=== PATIENT | female | born 1970 | race Two or more races ===

== ENCOUNTER → 2025-01-08 | Outpatient (CLI) | payer BC, SELFPAY ==
--- NOTE | 2025-01-08 14:43 | XR_ITS ---
Examination: PA lateral chest 2 views TECHNIQUE: Upright PA lateral chest 2 views Exam date and time: January 08, 2025 1511 hours Comparison December 14, 2023 INDICATIONS: Coughing beginning 2 weeks ago. FINDINGS: Normal heart size No pneumonia or pulmonary edema Moderate osteopenia IMPRESSION: No pneumonia or pulmonary edema
[2025-01-09 13:12] LABS: Cocci Serology, IgM Negative (Negative)
[2025-01-10 14:10] LABS: Cocci Serology, IgG Negative (Negative)
== END | disposition home or self-care (01) ==
LOC: COPL 14:25
PROVIDERS: PCP Specialist; Referring Provider Specialist; Visit Provider Radiology Diagnostic Radiology
DX: J20.9 Acute bronchitis, unspecified (principal); R05.9 Cough, unspecified
CPT/HCPCS: 36415; 71046; 86331; 86635

== ENCOUNTER → 2025-01-09 | Outpatient (CLI) | payer BC, SELFPAY ==
[2025-01-09 11:37] LABS: Influenza A Ag Negative; Influenza B Ag Negative
== END | disposition home or self-care (01) ==
LOC: SLDO 10:45
PROVIDERS: PCP Specialist; Referring Provider Specialist; Visit Provider Specialist
DX: R05.9 Cough, unspecified (principal)
CPT/HCPCS: 87502

== ENCOUNTER → 2025-04-23 | Outpatient (CLI) | payer BC, SELFPAY ==
[2025-04-23 16:28] LABS: Basophils # (Auto) 0.1 Thou/mm3 (0.0-0.2); Basophils % (Auto) 1 % (0-2.5); Eosinophils # (Auto) 0.1 Thou/mm3 (0.0-0.5); Eosinophils % (Auto) 2 % (0-10); Hematocrit 40.8 % (36.0-46.0); Hemoglobin 13.7 g/dL (12.0-16.0); Immature Granulocytes % (Auto) 0 % (0-0); Immature Granulocytes Auto 0.02 Thou/mm3 (0.00-0.00); Lymphocytes # (Auto) 2.2 Thou/mm3 (1.0-4.8); Lymphocytes % (Auto) 30 % (10-50); Mean Corpuscular HGB Conc 33.6 g/dl (31.0-37.0); Mean Corpuscular Hemoglobin 27.7 pg (25.0-35.0); Mean Corpuscular Volume 82 fL (80-100); Monocytes # (Auto) 0.7 Thou/mm3 (0.0-0.8); Monocytes % (Auto) 10 % (0-12); Neutrophils % (Auto) 56 % (37-80); Nucleated Red Blood Cell % 0 /100 WBC (0); Platelet Count 280 Thou/mm3 (140-440); RDW Standard Deviation 38.8 fL (36.4-46.3); Red Blood Count 4.95 Miln/mm3 (4.00-5.20); White Blood Count 7.1 Thou/mm3 (3.6-11.0)
[2025-04-23 16:50] LABS: B-Type Natriuretic Peptide < 20 pg/mL (0-100)
[2025-04-23 16:51] LABS: Troponin I < 0.002 ng/mL (0.0-0.045)
[2025-04-23 16:52] LABS: Parathyroid Hormone Intact 153.7 pg/ml (18.5-88.0)
[2025-04-23 16:59] LABS: Alanine Aminotransferase 32 U/L (10-49); Albumin, Serum 4.3 gm/dL (3.5-5.0); Albumin/Globulin Ratio 1.9 (1.2-2.2); Alkaline Phosphatase 119 U/L (46-116); Anion Gap 10 (7-16); Aspartate Amino Transferase 26 U/L (0-34); BUN/Creatinine Ratio 20 Ratio (12-20); Bilirubin,Total 0.3 mg/dL (0.3-1.2); Blood Urea Nitrogen 16 mg/dL (9-23); Calcium 9.5 mg/dL (8.3-10.6); Calcium (Corrected) 9.5 mg/dL (8.5-10.1); Carbon Dioxide 26.7 mMol/L (20.0-31.0); Cardiac Risk Estimate 2.7 RATIO (3.7-5.6); Chloride 105 mMol/L (98-107); Cholesterol 194 mg/dL (132-200); Creatinine (Component) 0.8 mg/dL (0.6-1.3); Free T4 (Free Thyroxine) 1.53 ng/dL (0.89-1.76); Globulin 2.3 gm/dL (2.3-3.5); Glucose 90 mg/dL (74-106); HDL Cholesterol 72 mg/dL (40-60); LDL Cholesterol,Calculated 105 mg/dL (0-130); Osmolality,Calculated 284 (275-295); Potassium 4.3 mMol/L (3.4-5.1); Sodium 142 mMol/L (136-145); Thyroid Stimulating Hormone 1.21 uIU/mL (0.55-4.78); Total Protein 6.6 gm/dL (5.7-8.2); Triglycerides 87 mg/dL (30-150); eGFR > 60 See Note
[2025-04-30 13:47] LABS: Thyroglobulin Antibodies <1 IU/mL (< OR = 1)
[2025-05-01 06:57] LABS: Thyroglobulin 6.2 ng/mL
== END | disposition home or self-care (01) ==
LOC: COPL 15:35
PROVIDERS: PCP Specialist; Referring Provider Specialist; Visit Provider Specialist
DX: R22.43 Localized swelling, mass and lump, lower limb, bilateral (principal); R53.83 Other fatigue; E78.2 Mixed hyperlipidemia; E03.8 Other specified hypothyroidism; E21.3 Hyperparathyroidism, unspecified; I10 Essential (primary) hypertension
CPT/HCPCS: 36415; 80053; 80061; 82306; 82330; 83880; 83970; 84432; 84439; 84443; 84484; 85025; 86800

== ENCOUNTER → 2025-05-13 | Outpatient (CLI) | payer BC, SELFPAY ==
--- NOTE | 2025-05-13 | XR_ITS ---
Examination: Ultrasound soft tissue neck TECHNIQUE: Grayscale sonographic images soft tissue neck Date and time: May 13, 2025 0913 hours INDICATIONS: Elevated parathyroid hormone FINDINGS: No cystic or solid masses noted IMPRESSION: No cystic or solid soft tissue neck mass is noted
--- NOTE | 2025-05-13 08:45 | XR_ITS ---
Examination: Thyroid sonography TECHNIQUE: Grayscale sonographic images thyroid lobes Date and time: May 13, 2025 0904 hours INDICATIONS: Diagnosis Max's thyroiditis secondary hyperparathyroidism FINDINGS: Right thyroid 4.2 cm Upper pole nodule 3 x 3 mm Lower pole nodule 4 x 4 millimeter Left thyroid 4.7 cm Lower pole nodule 16 x 10 x 14 mm IMPRESSION: Thyroid nodules as above Consider ultrasound-guided fine-needle aspiration of the vascular lower pole left thyroid nodule 16 x 10 x 14 mm
[2025-05-13 10:21] LABS: Calcium, Ionized 5.1 mg/dL (4.6-5.6)
[2025-05-13 10:22] LABS: Basophils # (Auto) 0.1 Thou/mm3 (0.0-0.2); Basophils % (Auto) 2 % (0-2.5); Eosinophils # (Auto) 0.1 Thou/mm3 (0.0-0.5); Eosinophils % (Auto) 1 % (0-10); Hematocrit 42.2 % (36.0-46.0); Hemoglobin 14.1 g/dL (12.0-16.0); Immature Granulocytes % (Auto) 0 % (0-0); Immature Granulocytes Auto 0.01 Thou/mm3 (0.00-0.00); Lymphocytes # (Auto) 1.8 Thou/mm3 (1.0-4.8); Lymphocytes % (Auto) 30 % (10-50); Mean Corpuscular HGB Conc 33.4 g/dl (31.0-37.0); Mean Corpuscular Hemoglobin 27.3 pg (25.0-35.0); Mean Corpuscular Volume 82 fL (80-100); Monocytes # (Auto) 0.5 Thou/mm3 (0.0-0.8); Monocytes % (Auto) 8 % (0-12); Neutrophils # (Auto) 3.4 Thou/mm3 (1.8-7.7); Neutrophils % (Auto) 59 % (37-80); Nucleated Red Blood Cell % 0 /100 WBC (0); Platelet Count 270 Thou/mm3 (140-440); RDW Standard Deviation 39.1 fL (36.4-46.3); Red Blood Count 5.17 Miln/mm3 (4.00-5.20); White Blood Count 5.9 Thou/mm3 (3.6-11.0)
[2025-05-13 10:38] LABS: Parathyroid Hormone Intact 94.8 pg/ml (18.5-88.0)
[2025-05-13 10:40] LABS: T4 (Thyroxine) 8.9 mcg/dL (4.5-10.9)
[2025-05-13 10:41] LABS: Sed Rate (ESR) 3 mm/hr (0-30)
[2025-05-13 10:44] LABS: Alanine Aminotransferase 30 U/L (10-49); Albumin, Serum 4.3 gm/dL (3.5-5.0); Albumin/Globulin Ratio 1.8 (1.2-2.2); Alkaline Phosphatase 119 U/L (46-116); Anion Gap 7 (7-16); Aspartate Amino Transferase 23 U/L (0-34); BUN/Creatinine Ratio 16 Ratio (12-20); Bilirubin,Total 0.5 mg/dL (0.3-1.2); Blood Urea Nitrogen 13 mg/dL (9-23); C-Reactive Protein < 0.5 mg/dL (0.0-0.9); Calcium 9.7 mg/dL (8.3-10.6); Calcium (Corrected) 9.7 mg/dL (8.5-10.1); Carbon Dioxide 29.9 mMol/L (20.0-31.0); Chloride 105 mMol/L (98-107); Creatinine (Component) 0.8 mg/dL (0.6-1.3); Free T3 3.2 pg/mL (2.3-4.2); Free T4 (Free Thyroxine) 1.46 ng/dL (0.89-1.76); Globulin 2.4 gm/dL (2.3-3.5); Glucose 105 mg/dL (74-106); Osmolality,Calculated 283 (275-295); Potassium 3.8 mMol/L (3.4-5.1); Sodium 142 mMol/L (136-145); Thyroid Stimulating Hormone 1.37 uIU/mL (0.55-4.78); Total Protein 6.7 gm/dL (5.7-8.2); eGFR > 60 See Note
[2025-05-20 06:47] LABS: T3,Total* 100 ng/dL (76-181); Thyroglobulin Antibodies* <1 IU/mL (< OR = 1); Thyroid Peroxidase Antibodies* <1 IU/mL (<9); Vitamin D,1,25 (OH)2,Total 44 pg/mL (18-72); Vitamin D2, 1,25 (OH)2 29 pg/mL; Vitamin D3, 1,25 (OH)2 15 pg/mL
== END | disposition home or self-care (01) ==
LOC: CDIM 09:24 → COPL 09:32
PROVIDERS: PCP Specialist; Referring Provider Nurse Practitioner Family; Visit Provider Radiology Diagnostic Radiology
DX: E04.1 Nontoxic single thyroid nodule (principal); E21.3 Hyperparathyroidism, unspecified; E06.3 Autoimmune thyroiditis; E55.9 Vitamin D deficiency, unspecified
CPT/HCPCS: 36415; 76536; 80053; 82330; 82652; 83970; 84436; 84439; 84443; 84480; 84481; 85025; 85652; 86140; 86376; 86800

== ENCOUNTER 2025-07-06 19:08 | Inpatient (IN) | payer BC, SELFPAY ==
[2025-07-06 19:10] VITALS: BP 162/103; PULSE 76; RESP 18; TEMP 36.9; O2SAT 97; BMI 34.9
--- NOTE | 2025-07-06 19:29 | PD.EDNEURO ---
Neuro Symptoms Deficit-RME/HPI General Chief Complaint: General Adult/Misc Complain Stated Complaint: HTN, SOB, DIZZINESS Time Seen by Provider: 07/06/25 19:17 Arrival date/time: 07/06/25 19:08 RME / HPI RME / HPI Narrative: See [facility] for HPI documentation. Related Data Home Medications ?Medication ?Instructions ?Recorded ?Confirmed azelastine 137 mcg (0.1 %) nasal 1 spray intranasal DAILY 12/27/20 04/13/21 spray cetirizine 10 mg capsule (Zyrtec) 20 mg QDAY 12/27/20 04/13/21 fluticasone furoate 200 1 inh inhalation QDAY 12/27/20 04/13/21 mcg-vilanterol 25 mcg/dose inhalation powder (Breo Ellipta) fluticasone propionate 50 1 spray intranasal QDAY 12/27/20 04/13/21 mcg/actuation nasal spray,suspension levothyroxine 75 mcg tablet 75 mcg PO QDAY 12/27/20 04/13/21 lisinopril 10 mg tablet 10 mg PO QDAY 12/27/20 04/13/21 montelukast 10 mg tablet 10 mg PO QDAY 12/27/20 04/13/21 (Singulair) Previous Rx's ?Medication ?Instructions ?Recorded albuterol sulfate 90 mcg/actuation 2 puff inhalation QID #18 grams 04/14/21 aerosol inhaler diphenhydramine HCl 25 mg capsule 25 mg PO QID PRN allergy symptoms 04/14/21 (Benadryl) #30 caps epinephrine 0.3 mg/0.3 mL 0.3 ml subcut .once PRN 04/14/21 injection, auto-injector hypersensitivity reaction #2 ea Allergies Allergy/AdvReac Type Severity Reaction Status Date / Time hydrocodone Allergy Severe HALLUCINATI Verified 07/06/25 19:19 ONS Review of Systems Review of Systems Systems Reviewed: All systems reviewed, normal except as documented ED Exam Narrative Physical exam: See [facility] for physical exam documentation. Course Course Course Narrative: 193: Stroke alert initiated. Quality Measures none Orders Category Date Time Status Bedside Blood Glucose NOW Care 07/06/25 19:31 Active Leather Coverer NOW Care 07/06/25 19:31 Active Continuous Pulse Oximetry NOW Care 07/06/25 19:31 Completed EKG (ED ONLY) *Do not use* NOW Care 07/06/25 19:31 Completed In and Out Catheter NEEDED Care 07/06/25 19:31 Active Insert IV NOW Care 07/06/25 19:31 Active NIH Stroke Scale now Care 07/06/25 19:31 Active NPO NOW Care 07/06/25 19:31 Completed Nurse Swallow Screen x1 Care 07/06/25 19:31 Active Consult to Neurology / Tele-Neurology Routine Cons 07/06/25 19:[address] stroke protocol Stat Exams 07/06/25 19:31 Completed EKG (ED Only) Stat Exams 07/06/25 19:31 Draft XR chest 1V portable Stat Exams 07/06/25 19:31 Completed Alcohol, Blood Medical Stat Lab 07/06/25 20:00 Completed Alcohol, Blood Medical Stat Lab 07/06/25 21:18 Completed B-Type Natriuretic Peptide Stat Lab 07/06/25 20:00 Completed CBC Stat Lab 07/06/25 20:00 Completed Comprehensive Metabolic Panel Stat Lab 07/06/25 20:00 Completed Drug Screen,Urine Stat Lab 07/06/25 20:07 Completed Free T3 Stat Lab 07/06/25 20:00 Completed Free T4 (Free Thyroxine) Stat Lab 07/06/25 20:00 Completed Magnesium Stat Lab 07/06/25 20:00 Completed Partial Thromboplastin Time Stat Lab 07/06/25 20:00 Completed Prothrombin Time with INR Stat Lab 07/06/25 20:00 Completed TSH [Thyroid Stimulating Hormone] Stat Lab 07/06/25 20:00 Completed Troponin I Stat Lab 07/06/25 20:00 Completed Urinalysis Stat Lab 07/06/25 20:07 Completed Labetalol IV [Trandate IV] Med 07/06/25 19:31 Active 10 mg IVP Q15M PRN Ondansetron Inj [Zofran Inj] Med 07/06/25 19:31 Discontinued 4 mg IVP Q4HR PRN Sodium Chloride 0.9% 1000 ml [Ns] 1,000 ml Med 07/06/25 19:45 Active IV 100 mls/hr Oxygen Delivery NOW RT 07/06/25 19:31 Active Vital Signs Vital signs: Vital Signs Temperature 98.4 F 07/06/25 19:10 Pulse Rate 76 07/06/25 19:10 Respiratory Rate 18 07/06/25 19:10 Blood Pressure 162/103 H 07/06/25 19:10 Pulse Oximetry (%) 97 07/06/25 19:10 Oxygen Delivery Method Room Air 07/06/25 19:10 Neuro Symptoms / Deficit MDM Narrative MDM Narrative:: This section includes all my notes and documentations, including HPI, PE, and ED course. Edward Hall MD HPI: 55yo female with a history of Max's, HTN here with complaints of difficulty articulating her words, difficulty with her balance, and difficulty swallowing. Patient's symptoms started when she was at work this morning around 11am, about 8 hours ago. She initially started having difficulty speaking her words (resolved after about 5 minutes). She then had unsteady gait around 1pm (resolved after couple minutes). At around 4pm, she started having difficulty swallowing, shortness of breath, diarrhea, and tingling to her left arm. She was able to swallow saliva and water. No other complaints reported. ROS: All negative except as documented in HPI. Physical Exam: General: Alert and oriented. No acute distress. Eyes: Conjunctivae and lids clear. EOMI. PERRL. ENT: No nasal congestion. Neck: Supple. No carotid bruit. No JVD. Heart: RRR. Lungs: No respiratory distress. Good air movement. No rhonchi, wheezing, rales. Abdomen: Soft and nontender. Legs: No clubbing, cyanosis, edema. Skin: Warm and dry. Neuro: Alert and oriented X 3. Cranial Nerves II-XII grossly intact. No peripheral motor deficits. I reviewed all diagnostic test results. My interpretation of the EKG is sinus rhythm with no ST-T changes. My interpretation of the chest x-ray is NAD. My review of the CT head report is NAD. Blood tests and urine tests are unremarkable. At this point, diagnoses include strokelike symptoms. I discussed the case with our teleneurologist and our hospitalist. About the presentation and exam and diagnostics and treatments here. And need of further care in the hospital. Will accept the patient. Edward Hall MD Patient data External records reviewed:: [facility] previous records (Per chart review, patient was seen here on 10/27/23 for paresthesia. ) Clinical information provided by:: patient Social determinants that could affect healthcare access:: none Patient has the following chronic illnesses:: HTN, Max's How is presenting disease/condition affected by chronic disease/condition?: uneffected by Evaluation data The following diagnostics were reviewed and interpreted by me:: lab results, radiology exam(s) and EKG tracing(s) (My interpretation of the EKG: NSR (74 bpm) with no ST-T changes. Edward Hall MD) Lab and/or radiology exams considered but not ordered:: none Interpretation Summary: I reviewed all diagnostic test results. My interpretation of the EKG is sinus rhythm with no ST-T changes. My interpretation of the chest x-ray is NAD. My review of the CT head report is NAD. Blood tests and urine tests are unremarkable. Medications / Prescriptions Medications or Prescriptions considered but not ordered:: none Medication administrations:: Medication Administration History Acetaminophen (Acetaminophen 325 Mg Tablet) 650 mg PO Q6H PRN PRN Reason: Fever >100.4 Stop: 08/05/25 23:16 Acetaminophen (Acetaminophen 325 Mg Tablet) 650 mg PO Q6H PRN PRN Reason: PAIN SCALE 1-3 (mild Stop: 08/05/25 23:16 Enoxaparin Sodium (Enoxaparin Sod Inj 40 Mg/0.4 Ml Syringe) 40 mg SC QDAY THANH Stop: 07/21/25 08:59 Sodium Chloride (Ns) 1,000 mls @ 100 mls/hr IV .Q10H THANH Stop: 08/05/25 19:44 Last Admin: 07/06/25 20:51 Dose: 100 mls/hr Documented By: GB Magnesium Sulfate (Magnesium Sulfate Ivpb) 2 gm in 50 mls @ 25 mls/hr IV X1 ONE Stop: 07/07/25 02:05 Last Admin: 07/07/25 00:28 Dose: 25 mls/hr Documented By: GB Labetalol HCl (Labetalol Inj 5 Mg/Ml Vial 20 Ml) 10 mg IVP Q15M PRN PRN Reason: HYPER Stop: 07/09/25 19:30 Morphine Sulfate (Morphine Sulf Inj 10 Mg/Ml Vial) 1 mg IVP Q4HR PRN PRN Reason: PAIN SCALE 7-10 (Severe Stop: 07/11/25 23:16 Ondansetron HCl (Ondansetron Inj 2 Mg/Ml Inj 2 Ml) 4 mg IVP Q6H PRN; Protocol PRN Reason: NAUSEA OR VOMITING Stop: 08/05/25 23:16 Oxycodone/Acetaminophen (Oxycodone/Apap 5/325 Tablet) 1 tab PO Q6H PRN PRN Reason: PAIN SCALE 4-6 (Moderate Stop: 07/11/25 23:16 Pantoprazole Sodium (Pantoprazole 40 Mg Tablet) 40 mg PO QDAY THANH Stop: 08/06/25 08:59 Sennosides (Senna Tablet) 1 tab PO QDAY PRN; Protocol PRN Reason: constipation Stop: 08/05/25 23:16 Discontinued Medications Ondansetron HCl (Ondansetron Inj 2 Mg/Ml Inj 2 Ml) 4 mg IVP Q4HR PRN PRN Reason: NAUSEA OR VOMITING Stop: 08/05/25 19:30 No medication given from me. Consultations Consultation(s) initiated? (list below): Yes Consultation #1 (Physician, Specialty, Details): I discussed the case with our teleneurologist and our hospitalist. About the presentation and exam and diagnostics and treatments here. And need of further care in the hospital. Will accept the patient. Diagnosis Neuro Differential Diagnosis: convulsions, delirium, subarachnoid hemorrhage, peripheral neuropathy, cerebrovascular accident, multiple sclerosis and transient cerebral ischemia Most likely diagnosis given after review of the tests above:: Strokelike symptoms Admission Indicated Admission indicated?: indicated Explain why admission is indicated or not indicated:: Possible CVA Admission Request Was there a request for admission?: Yes Admission Attestation Admission request attestation: Discussed case with Hospitalist service regarding admission. Discussed patients ED course, exam findings, labs, and radiology results. The Hospitalist [agrees] to accept the patient for admission. Disposition Plan Disposition Plan: Admit Critical Care Time Critical Care Time Critical Care Time: Yes Total Critical Care Time (min.): 35 Attestation: Due to a high probability of clinically significant, life threatening deterioration, the patient required my highest level of preparedness to intervene emergently and I personally spent this critical care time directly and personally managing the patient. This critical care time included obtaining a history; examining the patient; ordering and review of studies; arranging urgent treatment with development of a management plan; evaluation of patient's response to treatment; frequent reassessment; and discussions with family and other providers. It was exclusive of separately billable procedures and treating other patients and teaching time. Edward Hall MD Discharge Plan Plan Patient Disposition: Admit Acute Care w/in Hospital Problem List Clinical Impression: TIA (transient ischemic attack)
--- NOTE | 2025-07-06 19:31 | XR_ITS ---
Examination: CT brain head without contrast. 2-D sagittal coronal reconstructions Date and time of exam:July 06, 2025 1942 hours INDICATIONS: Stroke alert, onset focal neurologic deficit today CTDI: vol (mGy):50.4 DLP: (mGycm):1020 Technique: Multiple CT axial sections of the brain have been obtained, 5 mm slice thickness. Contrast has not been administered. 2-D sagittal, coronal reconstructions have been obtained Low dose protocols were performed. One or more of the following dose reduction techniques were used; automated exposure control, adjustment of the mA and/or KV according to patient size, use of iterative reconstruction technique. Findings: No significant ventricular enlargement. Intra-axial or extra-axial hemorrhage density is not seen. No mass effect or midline shift Basal cisterns are not remarkable. Fourth ventricle is midline. Cranial vault intact. Impression: Negative for acute hemorrhage, mass effect or midline shift
--- NOTE | 2025-07-06 19:31 | XR_ITS ---
Examination: AP chest single view TECHNIQUE: AP portable upright chest single view Date and time: July 06, 2025, 2023 hours, comparison January 08, 2025 INDICATIONS: Chest pain dizziness high blood pressure beginning 2 weeks ago. FINDINGS: Normal heart size. Lungs are clear. The osseous structures are intact IMPRESSION: No active disease
--- NOTE | 2025-07-06 19:31 | EKG_ITS ---
[facility] Test Date: 2025-07-06 Pat Name: JOHANA MAN Department: Room: - Gender: Female Oral Health Therapist: : 1970 Requested By: Edward Phillips Order Number: [id number] Reading MD: Edward Phillips Measurements Intervals [place] Rate: 74 P: 63 MD: 151 QRS: 5 QRSD: 96 T: 31 QT: 360 QTc: 401 Interpretive Statements SINUS RHYTHM Compared to ECG 10/27/2023 16:40:05 Sinus arrhythmia no longer present /store/S0/[id number].pdf
--- NOTE | 2025-07-06 19:33 | PC.NURSE ---
Case [id number]/06/2025 19:33:06 [facility] Case # [id number] has been created.
--- NOTE | 2025-07-06 20:05 | ESCONSULT_ITS ---
Tele Neuro Consultation Consultation Date 07/06/25 Most Recent Vital Signs Last Vital Signs Temp 98.4 F 07/06/25 19:10 Pulse 76 07/06/25 19:10 Resp 18 07/06/25 19:10 BP 162/103 H 07/06/25 19:10 Pulse Ox 97 07/06/25 19:10 O2 Del Method Room Air 07/06/25 19:10 Consultation Narrative [facility] Consult [facility] Patient Name:???Zina Andino Date of :???1970 Identification Number:??? Date of Service:???07/06/2025 19:33:06 Diagnosis:?R13.10 - Dysphagia Impression: ?This is a 55-year-old female with history of hypertension, irregular heartbeats, edema, Max thyroiditis, asthma, GERD not on any antiplatelet or anticoagulation. ?Around 11 AM today she had a brief period of difficulty speaking where she was mixing words and she felt dizzy for about 30 seconds. Later around 4:15 PM she felt that she was having difficulty swallowing and shortness of breath yet she was able to swallow water. ?By the time I saw her her NIH stroke scale was 0. She has subjective feeling of dysphagia. ?Basically intermittent symptoms of stroke like symptoms no disabling symptoms like to justify thrombolytic or advanced imaging. ?If she is able to swallow we can give her a dose of aspirin 325 mg x 1 and tomorrow baby aspirin daily. If not able to swallow we can do rectal aspirin 300 mg daily starting now. ?Workup for shortness of breath as per team. ?MRI of the brain without contrast. ?MRA head without contrast/MRA neck with contrast OR nonurgent CT angiogram head and neck with contrast. ?Echocardiogram with bubble study, fasting lipid profile hemoglobin A1c. ?Permissive hypertension as below. ?Telemetry monitoring. ?PT, OT, speech. ?DVT prophylaxis per primary team choice. ?Neurology to follow. ?Thank you for the consult Our recommendations are outlined below. Recommendations: ? Stroke/Telemetry Floor ? Neuro Checks ? Bedside Swallow Eval ? DVT Prophylaxis ? IV Fluids, Normal Saline ? Head of Bed 30 Degrees ? Euglycemia and Avoid Hyperthermia (PRN Acetaminophen) ? Antihypertensives PRN if Blood pressure is greater than 220/120 or there is a concern for End organ damage/contraindications for permissive HTN. If blood pressure is greater than 220/120 give labetalol PO or IV or Vasotec IV with a goal of 15% reduction in BP during the first 24 hours. Sign Out: ? Discussed with Emergency Department Provider ? Discussed with Rapid Response Team Advanced Imaging: Advanced Imaging Deferred because: Non-disabling symptoms as verified by the patient; no cortical signs so not consistent with LVO Metrics: Last Known Well: 07/06/2025 16:15:00 Dispatch Time: 07/06/2025 19:33:06 Arrival Time: 07/06/2025 19:30:00 Initial Response Time: 07/06/2025 19:36:06Symptoms: Dysphagia. . Initial patient interaction: 07/06/2025 19:37:00 NIHSS Assessment Completed: 07/06/2025 19:40:00Patient is not a candidate for Thrombolytic. Thrombolytic Medical Decision: 07/06/2025 19:40:00Patient was not deemed candidate for Thrombolytic because of following reasons: Stroke severity too mild (non-disabling) . CT Head: CT head unremarkable for acute infarction or hemorrhage per Radiology: no acute findings. I personally reviewed all the CT images that were available to me and it showed: no acute findings. Primary Provider Notified of Diagnostic Impression and Management Plan on: 07/06/2025 19:56:40 History of Present Illness:Patient is a 55 year old Female. Patient was brought by private transportation with symptoms of Dysphagia. . This is a 55-year-old female with history of hypertension, irregular heartbeats, edema, Max thyroiditis, asthma, GERD not on any antiplatelet or anticoagulation. Around 11 AM today she had a brief period of difficulty speaking where she was mixing words and she felt dizzy for about 30 seconds. Later around 4:15 PM she felt that she was having difficulty swallowing and shortness of breath yet she was able to swallow water. By the time I saw her her NIH stroke scale was 0. She has subjective feeling of dysphagia. Past Medical History: ?Hypertension ?There is no history of Diabetes Mellitus ?There is no history of Atrial Fibrillation ?There is no history of Stroke Medications: No Anticoagulant use? No Antiplatelet use Reviewed EMR for current medications Allergies:? Reviewed Social History: Smoking: No Family History: There is no family history of premature cerebrovascular disease pertinent to this consultation ROS : 14 Points Review of Systems was performed and was negative except mentioned in HPI. Past Surgical History: There Is No Surgical History Contributory To Today?s Visit Examination: BP(162/103),?Pulse(76), 1A: Level of Consciousness - Alert; keenly responsive?+ 0 1B: Ask Month and Age - Both Questions Right?+ 0 1C: Blink Eyes & Squeeze Hands - Performs Both Tasks?+ 0 2: Test Horizontal Extraocular Movements - Normal?+ 0 3: Test Visual Yang - No Visual Loss?+ 0 4: Test Facial Palsy (Use Grimace if Obtunded) - Normal symmetry?+ 0 5A: Test Left Arm Motor Drift - No Drift for 10 Seconds?+ 0 5B: Test Right Arm Motor Drift - No Drift for 10 Seconds?+ 0 6A: Test Left Leg Motor Drift - No Drift for 5 Seconds?+ 0 6B: Test Right Leg Motor Drift - No Drift for 5 Seconds?+ 0 7: Test Limb Ataxia (FNF/Heel-[place]) - No Ataxia?+ 0 8: Test Sensation - Normal; No sensory loss?+ 0 9: Test Language/Aphasia - Normal; No aphasia?+ 0 10: Test Dysarthria - Normal?+ 0 11: Test Extinction/Inattention - No abnormality?+ 0 NIHSS Score:?0 Pre-Morbid Modified [place] Scale:0 Points = No symptoms at all Spoke with :?ER provider This consult was conducted in real time using interactive audio and video technology. Patient was informed of the technology being used for this visit and agreed to proceed. Patient located in hospital and provider located at home/office setting. Patient is being evaluated for possible acute neurologic impairment and high probability of imminent or life-threatening deterioration. I spent total of 50 minutes providing care to this patient, including time for face to face visit via telemedicine, review of medical records, imaging studies and discussion of findings with providers, the patient and/or family. Dr Penny Watson [facility] For Inpatient follow-up with [facility] physician please call [facility] at . As we are not an outpatient service for any post hospital discharge needs please contact the hospital for assistance. If you have any questions for the [facility] physicians or need to reconsult for clinical or diagnostic changes please contact us via [facility] at . Signature :Hua Watson
[2025-07-06 20:12] LABS: Collection Type, Urine Clean Catch
[2025-07-06 20:12] LABS: Basophils # (Auto) 0.1 Thou/mm3 (0.0-0.2); Basophils % (Auto) 2 % (0-2.5); Eosinophils # (Auto) 0.1 Thou/mm3 (0.0-0.5); Eosinophils % (Auto) 1 % (0-10); Hematocrit 49.1 % (36.0-46.0); Hemoglobin 15.7 g/dL (12.0-16.0); Immature Granulocytes Auto 0.03 Thou/mm3 (0.00-0.00); Lymphocytes # (Auto) 3.2 Thou/mm3 (1.0-4.8); Lymphocytes % (Auto) 39 % (10-50); Mean Corpuscular HGB Conc 32.0 g/dl (31.0-37.0); Mean Corpuscular Hemoglobin 27.2 pg (25.0-35.0); Mean Corpuscular Volume 85 fL (80-100); Monocytes # (Auto) 0.7 Thou/mm3 (0.0-0.8); Monocytes % (Auto) 8 % (0-12); Neutrophils # (Auto) 4.1 Thou/mm3 (1.8-7.7); Neutrophils % (Auto) 49 % (37-80); Nucleated Red Blood Cell # 0.00 Thou/mm3 (0.00-0.00); Nucleated Red Blood Cell % 0 /100 WBC (0); Platelet Count 257 Thou/mm3 (140-440); RDW Standard Deviation 41.8 fL (36.4-46.3); Red Blood Count 5.77 Miln/mm3 (4.00-5.20); White Blood Count 8.2 Thou/mm3 (3.6-11.0)
[2025-07-06 20:13] VITALS: RESP 98
--- NOTE | 2025-07-06 20:16 | PC.NURSE ---
Pt presented to ER for c/o 1 minute episode of mixed words at 1100, as well as dizziness, SOB. Pt states at 1615 today she developed difficulty swallowing as well. She currently states symptoms have mostly subsided although she has mild LIU, SOB. Pt FS 95. 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
[2025-07-06 20:19] LABS: Bilirubin,Urine Negative (Negative); Blood,Urine Negative (Negative); Clarity,Urine Clear (Clear/Hazy); Color,Urine Colorless (Lt Yel-Yel); Glucose, Urine Negative (Negative); Ketones,Urine Negative (Negative); Leukocyte Esterase,Urine Negative (Negative); Nitrite,Urine Negative (Negative); PH,Urine 6.5 (5.0-7.0); Protein,Urine Negative (Neg - Trace); RBC,Urine 1 /hpf (0-3); Specific Gravity,Urine 1.006 (1.001-1.035); Squamous Epithelial Cell,Urine 2 /hpf (0-5); Urobilinogen,Urine Negative mg/dL (0.0-1.0); WBC,Urine 1 /hpf (0-5)
[2025-07-06 20:24] LABS: INR 1.0 (0.9-1.3); Partial Thromboplastin Time 25.7 Seconds (22.0-36.0); Prothrombin Time 10.8 Seconds (9.0-12.2)
[2025-07-06 20:27] LABS: Amphetamine/Methamp Scrn,U Negative (Negative); Barbiturate Screen,Urine Negative (Negative); Benzodiazepines Screen,Urine Negative (Negative); Benzoylecgonine Screen, Ur Negative (Negative); Fentanyl Screen,Urine Negative (Negative); Opiate Screen,Urine Negative (Negative); THC Screen,Urine Negative (Negative)
[2025-07-06 20:31] LABS: Free T3 3.0 pg/mL (2.3-4.2)
[2025-07-06 20:36] VITALS: BP 178/129; PULSE 81; RESP 20; O2SAT 97
[2025-07-06 20:36] LABS: B-Type Natriuretic Peptide < 20 pg/mL (0-100)
[2025-07-06 20:51] VITALS: PULSE 76
[2025-07-06] MEDS: SODIUM CHLORIDE 0.9% 1000 ML 1,000 ML 100 ML IV (20:51)
[2025-07-06 21:07] LABS: Alanine Aminotransferase 60 U/L (10-49); Albumin, Serum 4.6 gm/dL (3.5-5.0); Albumin/Globulin Ratio 1.5 (1.2-2.2); Alkaline Phosphatase 99 U/L (46-116); Anion Gap 17 (7-16); Aspartate Amino Transferase 135 U/L (0-34); BUN/Creatinine Ratio 10 Ratio (12-20); Bilirubin,Total 0.7 mg/dL (0.3-1.2); Blood Urea Nitrogen 7 mg/dL (9-23); Calcium 9.4 mg/dL (8.3-10.6); Calcium (Corrected) 9.4 mg/dL (8.5-10.1); Carbon Dioxide 25.7 mMol/L (20.0-31.0); Chloride 99 mMol/L (98-107); Creatinine (Component) 0.7 mg/dL (0.6-1.3); Estimated Creatinine Clearance 104.9 mL/min (>60); Free T4 (Free Thyroxine) 0.79 ng/dL (0.89-1.76); Globulin 3.0 gm/dL (2.3-3.5); Glucose 101 mg/dL (74-106); Magnesium 1.7 mg/dL (1.6-2.6); Osmolality,Calculated 281 (275-295); Potassium 3.8 mMol/L (3.4-5.1); Sodium 142 mMol/L (136-145); Thyroid Stimulating Hormone 1.99 uIU/mL (0.55-4.78); Total Protein 7.6 gm/dL (5.7-8.2); Troponin I < 0.002 ng/mL (0.0-0.045); eGFR > 60 See Note
[2025-07-06 22:00] VITALS: BP 174/97; PULSE 76; RESP 18; O2SAT 99
[2025-07-06 22:25] LABS: Alcohol, Blood Medical < 3.0 mg/dL (0-10.0)
--- NOTE | 2025-07-06 23:52 | ESHP_ITS ---
Documentation for date of: 07/06/25 [facility] History of Present Illness Chief complaint: Difficulty articulating speech, imbalance, and dysphagia. History of present illness: 55-year-old female with PMH of hypertension, Max?s thyroiditis, asthma, GERD, obstructive sleep apnea (on CPAP ~80% compliance), and history of ?irregular heartbeat? currently under cardiology care. This morning around 11 AM, while at work, she experienced a brief episode of word-finding difficulty, where she noticed the words she was speaking did not match what she intended to say. This lasted less than a minute and resolved spontaneously. Around lunchtime (1 PM), she developed transient dizziness which she attributed to not eating; symptoms resolved after she ate. At 4:15 PM, she developed a sensation of difficulty swallowing even her own saliva, associated with mild chest tightness and shortness of breath. She drank water and took an antacid without relief. She measured her BP at home and found it elevated, so her brought her to the ED. She denies persistent weakness, numbness, double vision, syncope, or chest pain. Reports chronic fatigue over the last 5?6 weeks, with associated 14 lb weight gain and bilateral lower extremity edema. She is currently followed by cardiology, noted to have irregular rhythm, with a stress test scheduled. On arrival to ED: Stroke alert was called. NIHSS 0. CT head negative. Labs largely unremarkable except mild transaminitis (AST 135, ALT 60, ratio ~2:1). Utox and ethanol negative. Tele-neurology evaluated: impression TIA vs stroke mimic, not a candidate for thrombolysis, recommended MRI/MRA, echo with bubble, PT/OT, telemetry, permissive HTN. ROS: * Neuro: Positive for transient dysarthria, dizziness, dysphagia. No focal weakness, no visual loss. * Cardiac: Reports history of irregular heartbeat, edema, weight gain. Denies chest pain or palpitations today. * Pulm: Shortness of breath during episode, now resolved. No cough or wheeze. * GI: Reports bloating/diarrhea with carbs. GERD history. No abdominal pain, melena, hematemesis. * : Denies dysuria, hematuria. * Other systems: Negative except as above. Past Medical History: * Hypertension * Max?s thyroiditis * Asthma * GERD * JAI (on CPAP) * Irregular heartbeat (under cardiology care, Dr. Pop) Past Surgical History: * Multiple C-sections * Knee surgeries * Shoulder surgery * Bladder surgery * Tumor removal (benign, unspecified site) * Appendectomy Medications: * Valsartan * Levothyroxine * Inhaler for asthma * Supplements: B6, B2, CoQ10, turmeric, biotin, chicory root, others (memory supplement, name pending) Allergies: * Vicodin (reaction not specified) * Environmental allergies (pollen, etc.) * Shellfish (tolerates small amounts; too much triggers reaction) Family History: * No premature stroke or CV disease reported. Social History: * Denies tobacco, denies recreational drug use. * Alcohol: reports 1?2 drinks socially on weekends; last drink Sunday * Lives with and son. 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 Exam Vital Signs Temp Pulse Resp BP Pulse Ox O2 Del Method 98.4 F 76 18 174/97 H 99 Room Air 07/06/25 19:10 07/06/25 22:00 07/06/25 22:00 07/06/25 22:00 07/06/25 22:00 07/06/25 22:00 Narrative Exam General: Alert, oriented, NAD. HEENT: PERRL, EOMI, sclerae injected bilaterally, oropharynx clear. Neck: Supple, no JVD. Heart: RRR, no murmurs/rubs/gallops. Lungs: CTA bilaterally, no wheezes or crackles. Abdomen: Soft, NTND, BS+. No rebound or guarding. Extremities: No cyanosis, clubbing, edema (trace edema per patient history, not prominent on exam). Neuro: Alert and oriented x3, CN II?XII grossly intact, strength 5/5 throughout, sensation intact, no dysarthria at present, NIHSS 0. Skin: Warm, dry, no rash. Results: Labs 07/06/25 20:00 07/06/25 20:00 Labs: Short CBC 07/06/25 Range/Units 20:00 WBC 8.2 (3.6-11.0) Thou/mm3 Hgb 15.7 (12.0-16.0) g/dL Hct 49.1 H (36.0-46.0) % Plt Count 257 (140-440) Thou/mm3 BMP 07/06/25 20:00 Sodium 142 Potassium 3.8 Chloride 99 Carbon Dioxide 25.7 BUN 7 L Creatinine 0.7 Glucose 101 Calcium 9.4 Cardiac Enzymes 07/06/25 Range/Units 20:00 Troponin I < 0.002 (0.0-0.045) ng/mL Liver Function 07/06/25 Range/Units 20:00 Total Bilirubin 0.7 (0.3-1.2) mg/dL AST 135 H (0-34) U/L ALT 60 H (10-49) U/L Alkaline Phosphatase 99 (46-116) U/L Albumin 4.6 (3.5-5.0) gm/dL Urine 07/06/25 Range/Units 20:07 Urine Color Colorless A (Lt Yel-Yel) Urine Clarity Clear (Clear/Hazy) Urine pH 6.5 (5.0-7.0) Ur Specific Herald 1.006 (1.001-1.035) Urine Protein Negative (Neg - Trace) Urine Glucose (UA) Negative (Negative) Quality Measures Quality Measures VTE prophylaxis Medications Home Medications and Allergies Home Medications ?Medication ?Instructions ?Recorded ?Confirmed ?Type levothyroxine 75 mcg tablet 75 mcg PO QDAY 12/27/20 History montelukast 10 mg tablet 10 mg PO QDAY 12/27/2007/07 History (Singulair) budesonide 0.5 mg/2 mL suspension 0.5 mg inhalation DA [facility] 07/07/25 07/07/25 History for nebulization bupropion HCl 150 mg 24 hr tablet, 150 mg PO DAILY 07/07/25 History extended release ergocalciferol (vitamin D2) 1,250 1,250 mcg PO .once a week 07/07/25 07/07/25 History mcg (50,000 unit) capsule famotidine 40 mg tablet 40 mg PO DAILY 07/07/2506/19 History ipratropium 0.5 mg-albuterol 3 mg 2.5 ml inhalation DA [facility] 07/07/25 07/07/25 History (2.5 mg base)/3 mL nebulization soln ketoconazole 2 % topical cream 1 applic topical DAILY 07/07/25 07/07/25 History levocetirizine 5 mg tablet 5 mg PO DAILY 07/07/2506/19 History pantoprazole 20 mg tablet,delayed 20 mg PO DAILY 07/0707/07/25 History release valsartan 80 mg tablet 80 mg PO DAILY 07/07/2506/19 History Allergies Allergy/AdvReac Type Severity Reaction Status Date / Time hydrocodone Allergy Severe HALLUCINATI Verified 07/06/25 19:19 ONS Visit Medications Acetaminophen (Acetaminophen 325 Mg Tablet) 650 mg PO Q6H PRN PRN Reason: Fever >100.4 Stop: 08/05/25 23:16 Acetaminophen (Acetaminophen 325 Mg Tablet) 650 mg PO Q6H PRN PRN Reason: PAIN SCALE 1-3 (mild Stop: 08/05/25 23:16 Enoxaparin Sodium (Enoxaparin Sod Inj 40 Mg/0.4 Ml Syringe) 40 mg SC QDAY [facility] Stop: 07/21/25 08:59 Sodium Chloride (Ns) 1,000 mls @ 100 mls/hr IV .Q10H THANH Stop: 08/05/25 19:44 Last Admin: 07/06/25 20:51 Dose: 100 mls/hr Labetalol HCl (Labetalol Inj 5 Mg/Ml Vial 20 Ml) 10 mg IVP Q15M PRN PRN Reason: HYPER Stop: 07/09/25 19:30 Morphine Sulfate (Morphine Sulf Inj 10 Mg/Ml Vial) 1 mg IVP Q4HR PRN PRN Reason: PAIN SCALE 7-10 (Severe Stop: 07/11/25 23:16 Ondansetron HCl (Ondansetron Inj 2 Mg/Ml Inj 2 Ml) 4 mg IVP Q6H PRN; Protocol PRN Reason: NAUSEA OR VOMITING Stop: 08/05/25 23:16 Oxycodone/Acetaminophen (Oxycodone/Apap 5/325 Tablet) 1 tab PO Q6H PRN PRN Reason: PAIN SCALE 4-6 (Moderate Stop: 07/11/25 23:16 Pantoprazole Sodium (Pantoprazole 40 Mg Tablet) 40 mg PO QDAY THANH Stop: 08/06/25 08:59 Sennosides (Senna Tablet) 1 tab PO QDAY PRN; Protocol PRN Reason: constipation Stop: 08/05/25 23:16 Discontinued Medications Ondansetron HCl (Ondansetron Inj 2 Mg/Ml Inj 2 Ml) 4 mg IVP Q4HR PRN PRN Reason: NAUSEA OR VOMITING Stop: 08/05/25 19:30 Assessment & Plan Plan 55F with PMH of HTN, Max?s, asthma, GERD, JAI, and irregular heartbeat presenting with transient speech disturbance, dizziness, dysphagia, and SOB . Symptoms now resolved, NIHSS 0, CT negative. Most consistent with TIA. Workup pending for etiology. Additional findings of mild transaminitis, history of irregular rhythm, and chronic fatigue with edema. # Transient cerebral ischemic attack, unspecified Presented with transient dysarthria, imbalance, and dysphagia; now resolved. NIHSS 0, CT head negative. Not a candidate for thrombolysis. Plan: * Admit to stroke/telemetry floor * Neuro checks q6h * MRI brain w/o contrast * MRA head/neck w contrast (or CTA if MRI unavailable) * Echocardiogram with bubble study * Telemetry monitoring * PT/Speech evaluations * Permissive HTN: treat only if SBP >220 or DBP >120, goal <15% reduction in 24h (IV labetalol PRN) * Hold aspirin per instructions * Consult in-house neurology # Hypertensive urgency History of HTN, BP elevated in ED to 180/130 Permissive HTN approach per neurology. Plan: * Hold home valsartan initially * IV labetalol PRN SBP >220 or DBP >120 * NS at 100 mL/hr # Cardiac arrhythmia, unspecified Patient reports irregular rhythm under cardiology follow-up, stress test scheduled. Plan: * Continuous telemetry * Follow-up outpatient with screener perfumer, Dr. Pop # Obstructive sleep apnea On CPAP at home, per patient 80% compliant. Plan: * Continue CPAP nightly during admission # Acute liver injury AST 135, ALT 60 (AST:ALT 2:1). Alcohol level negative despite report of one drink yesterday. Likely non-alcoholic cause (possible supplement-related vs fatty liver). Plan: * Trend LFTs * Consider RUQ ultrasound if persistent/worsening # Hypomagnesemia Mg 1.7 on admission. Plan: * Replete IV as needed * Daily mag labs # Gastro-esophageal reflux disease, unspecified Chronic, symptomatic at times. Plan: * Continue Protonix # Unspecified asthma, uncomplicated Stable on inhaler. Plan: * Continue home inhaler regimen Health Maintenance Disposition: Admit to stroke/telemetry floor Feeding: NPO until swallow evaluation complete; advance to regular diet Thromboprophylaxis: Enoxaparin SC daily GI prophylaxis: PPI Code Status: Full ----- Plan discussed with attending physician Dr. Will Torres MD PGY-1 Internal Medicine Attending Provider Attestation/Addendum After examination of the patient and review of the clinical data I feel that this patient needs admission to the hospital for further treatment/evaluation. I David Solis MD, attest that I was physically present for dale portions of evaluation, and examined patient, labs and imagings and plan of care were discussed with IM residents team, and I agree with the findings and plans documented above.
[2025-07-07] VITALS (13 sets, daily range): BP systolic 116–156; BP diastolic 68–99; PULSE 74–89; RESP 16–97; TEMP 36.1–36.6; O2SAT 97–100; BMI 36.2
--- NOTE | 2025-07-07 | XR_ITS ---
Examinations: MRI Brain without intravenous contrast. MRI brain with intravenous contrast MRA brain with intravenous contrast. MRA brain without intravenous contrast MRA neck with intravenous contrast Date and time of exam: July 07, 2025 0806 hours INDICATIONS: Stroke alert July 06, 2025 1942 hours, onset focal neurologic deficit, slurred speech, difficulty swallowing Technique: Multiple axial and sagittal images of the brain have been obtained Siemens high-resolution 1.5 Pallavi short bore scanner is utilized. Sagittal sections, T1-weighted, TR 500, TE 14 Axial sections proton density and T2-weighted, TR 3,000, TE 34, TR 3,000, TE 91 Inversion recovery axial images, TR 9,260, TE 111, TI 2,500 Diffusion weighted images, axial sections, TR 4,800, TE 128, B value 1,000 Axial sections, ADC map, TR 4,800, TE 128. Contrast images have been obtained post intravenous 20 cc Gadolinium. T1-weighted axial and coronal images post contrast have been obtained. Angiographic images of neck and brain are obtained pre and post contrast. 3-D post processing performed, including brain, extracranial neck arterial maximum intensity projections Findings: Sellaturcica is not enlarged. The optic chiasm and infundibular stalk are not remarkable. Prepontine and interpeduncular cisterns are not enlarged. No localized enlargement of the medulla or johnson. Fourth ventricle and cerebellar tonsils normal in position. Subacute hemorrhage is not seen. Fourth ventricle is midline. Mass in the cerebellopontine angle region is not evident. 7th and 8th nerve complexes exhibits symmetry. Globes are symmetrical with no retro-orbital mass. Increased white matter signal not seen Diffusion-weighted images demonstrateno focus of restricted diffusion. Mass-effect upon the ventricular system is not identified. Abnormal contrast enhancement is not seen. MRA brain carotid images no significant carotid stenoses, no large vessel cerebral occlusions Impression: Negative for acute hemorrhage mass effect or midline shift No acute infarct No MR findings diagnostic for demyelinating disease
[2025-07-07] MEDS: Magnesium Sulfate 2 GM Ivpb 2 GM/50 ML BAG IV (00:28)
[2025-07-07] MEDS: SODIUM CHLORIDE 0.9% 1000 ML 1,000 ML 100 ML IV (05:30)
[2025-07-07 06:41] LABS: Basophils # (Auto) 0.1 Thou/mm3 (0.0-0.2); Basophils % (Auto) 2 % (0-2.5); Eosinophils # (Auto) 0.1 Thou/mm3 (0.0-0.5); Eosinophils % (Auto) 1 % (0-10); Hematocrit 40.8 % (36.0-46.0); Hemoglobin 13.1 g/dL (12.0-16.0); Immature Granulocytes Auto 0.01 Thou/mm3 (0.00-0.00); Lymphocytes # (Auto) 2.4 Thou/mm3 (1.0-4.8); Lymphocytes % (Auto) 36 % (10-50); Mean Corpuscular HGB Conc 32.1 g/dl (31.0-37.0); Mean Corpuscular Hemoglobin 27.5 pg (25.0-35.0); Mean Corpuscular Volume 86 fL (80-100); Monocytes # (Auto) 0.7 Thou/mm3 (0.0-0.8); Monocytes % (Auto) 10 % (0-12); Neutrophils # (Auto) 3.5 Thou/mm3 (1.8-7.7); Neutrophils % (Auto) 52 % (37-80); Nucleated Red Blood Cell # 0.00 Thou/mm3 (0.00-0.00); Nucleated Red Blood Cell % 0 /100 WBC (0); Platelet Count 232 Thou/mm3 (140-440); RDW Standard Deviation 41.8 fL (36.4-46.3); Red Blood Count 4.77 Miln/mm3 (4.00-5.20); White Blood Count 6.8 Thou/mm3 (3.6-11.0)
[2025-07-07 06:49] LABS: Glucose Estimated Average 117 mg/dL (80-131); Hemoglobin A1C 5.7 % Hgb (4.8-6.0)
[2025-07-07 06:59] LABS: INR 1.0 (0.9-1.3); Prothrombin Time 11.4 Seconds (9.0-12.2)
[2025-07-07 07:10] LABS: Alanine Aminotransferase 18 U/L (10-49); Albumin, Serum 3.7 gm/dL (3.5-5.0); Albumin/Globulin Ratio 1.9 (1.2-2.2); Alkaline Phosphatase 108 U/L (46-116); Anion Gap 10 (7-16); Aspartate Amino Transferase 20 U/L (0-34); BUN/Creatinine Ratio 13 Ratio (12-20); Bilirubin,Total 0.4 mg/dL (0.3-1.2); Blood Urea Nitrogen 8 mg/dL (9-23); Calcium 9.9 mg/dL (8.3-10.6); Calcium (Corrected) 10.1 mg/dL (8.5-10.1); Carbon Dioxide 25.3 mMol/L (20.0-31.0); Cardiac Risk Estimate 2.5 RATIO (3.7-5.6); Chloride 108 mMol/L (98-107); Cholesterol 135 mg/dL (132-200); Creatinine (Component) 0.6 mg/dL (0.6-1.3); Estimated Creatinine Clearance 122.3 mL/min (>60); Globulin 2.0 gm/dL (2.3-3.5); Glucose 97 mg/dL (74-106); HDL Cholesterol 54 mg/dL (40-60); LDL Cholesterol,Calculated 69 mg/dL (0-130); Magnesium 2.0 mg/dL (1.6-2.6); Osmolality,Calculated 283 (275-295); Phosphorous 3.4 mg/dL (2.4-5.1); Potassium 3.8 mMol/L (3.4-5.1); Sodium 143 mMol/L (136-145); Total Protein 5.7 gm/dL (5.7-8.2); Triglycerides 61 mg/dL (30-150); eGFR > 60 See Note
--- NOTE | 2025-07-07 07:31 | ECHO_ITS ---
Transthoracic Echo Report Ht (in): 64 Wt (lb): 217 Exam Location: Echo Lab Status: Inpatient Tenant Selector: Tara Gerber Indications: Procedure Performed: BP: 134 / 91 HR: 79 MEASUREMENTS (Male / Female) Normal Values 2D ECHO LV Diastolic Diameter PLAX 4.6 cm 4.2 - 5.9 / 3.9 - 5.3 cm LV Systolic Diameter PLAX 2.8 cm IVS Diastolic Thickness 1.0 cm 0.6 - 1.0 / 0.6 - 0.9 cm LVPW Diastolic Thickness 1.2 cm 0.6 - 1.0 / 0.6 - 0.9 cm LV Relative Wall Thickness 0.5 LVOT Diameter 1.8 cm LA Volume Index 22.6 cm?/m? 16 - 28 cm?/m? Ascending Aorta Diameter 3.1 cm M-MODE AV Cusp Separation MM 1.7 cm DOPPLER AV Peak Velocity 166.0 cm/s AV Peak Gradient 11.0 mmHg AV Mean Gradient 6.0 mmHg AV Velocity Time Integral 32.3 cm LVOT Peak Velocity 117.0 cm/s LVOT Peak Gradient 5.2 mmHg LVOT Velocity Time Integral 26.3 cm LVOT Cardiac Index 2454.1 cm?/min?m? AV Area Cont Eq vti 2.1 cm? AV Area Cont Eq pk 1.8 cm? MV Area PHT 4.2 cm? Mitral E Point Velocity 73.2 cm/s Mitral A Point Velocity 91.7 cm/s Mitral E to A Ratio 0.8 LV E' Lateral Velocity 9.3 cm/s Mitral E to LV E' Lateral Ratio 7.9 LV E' Septal Velocity 7.2 cm/s Mitral E to LV E' Septal Ratio 10.2 TR Peak Velocity 209.3 cm/s TR Peak Gradient 17.2 mmHg PV Peak Velocity 84.4 cm/s PV Peak Gradient 2.9 mmHg FINDINGS Left Ventricle Normal left ventricular size, wall thickness, systolic function with no obvious regional wall motion abnormalities. The ejection fraction is visually estimated at 55-60 %. Right Ventricle The right ventricle is normal in size and systolic function. The estimated right ventricular systolic pressure, 25 mmHg. Left Atrium The left atrial cavity size is mildly increased. Right Atrium The right atrium is normal by two-dimensional imaging, color flow and Doppler imaging with no structural abnormalities, no thrombus formation present. Atrial Septum No [id number] shunt demonstrated by agitated saline injection. Aorta The aorta is normal by two-dimensional, color flow and Doppler interrogation. Mitral Valve The mitral valve is normal by two-dimensional, color flow and Doppler interrogation. There is no significant mitral valve regurgitation, stenosis or prolapse. Aortic Valve The aortic valve is trileaflet and normal by two-dimensional, color flow and Doppler interrogation. There is no significant aortic valve regurgitation. Tricuspid Valve The tricuspid valve is normal by two-dimensional, color flow and Doppler interrogation.there is mild tricuspid valve regurgitation. Pulmonic Valve The pulmonic valve is not well visualized. There is no significant pulmonic valve regurgitation. Vessels The pulmonary artery appears normal. The inferior vena cava pulmonary and hepatic veins appear normal. Pericardium There is a small pericardial effusion. CONCLUSIONS Indication: CVA Workup, bubble study Negative bubble study foer a PFO or ASD. Consider LISS if high clinical index of suspicion to rule out any LA or SHARI thrombus. Normal LV size and function with an EF of 60-65%. Normal RV size and function. Trace to mild TR and trace MR. Trivial to small poterolateral pericardial effusion. No evidence of any cardiac tamponade. Rafi Pop (Electronically Signed) Final Date: 08 July 2025 00:23
[2025-07-07] MEDS: ENOXAPARIN SOD INJ 40 MG/0.4 ML SYRINGE SC (09:31)
[2025-07-07] MEDS: PANTOPRAZOLE 40 MG TABLET PO (09:32)
[2025-07-07] MEDS: LEVOTHYROXINE SODIUM 25 MCG TABLET 75 MCG PO (09:32)
[2025-07-07] MEDS: BuPROPion HCL XL 150 MG TABCR PO (09:33)
--- NOTE | 2025-07-07 09:51 | ESPR_ITS ---
<Statement entered by Hodan Royal MD - 07/07/25 19:01> Pt is seen at bedside. Patient states she was having difficulty with word finding which was noticed by others at work however she denied noticing any facial asymmetry or weakness. CT was negative as well as MRI is negative. Patient is pending neuro recs anticipate DC tomorrow as patient is back to her baseline. Patient was seen and examined by me personally. I have directly supervised and reviewed documentation by the team resident and agree with its findings. ------- Plan of care was discussed with the attending, Dr. Lele Royal, PGY-2 Documentation for date of: 07/07/25 Subjective Subjective Interval history: Today patient was seen and examined at bedside while eating breakfast. She endorses fatigue but denies headache, vision changes, lightheadedness, weakness constipation, dysphagia, chest pain and shortness of breath. Labs review, significant for decrease in Hg from 15.7 to 13.1. Vitals are stable. Patient is saturating well on room air. Resume home medications levothyroxine, bupropion and albuterol/Ipratropium as needed. Brain MRI with MRA showed no acute infarct, negative for acute hemorrhage Pending neurology recommendation, possible discharge tommorrow. Exam Vital Signs Temp Pulse Resp BP Pulse Ox O2 Del Method FiO2 97.0 F 74 20 137/96 H 100 BiPAP 28 07/07/25 07:25 07/07/25 08:23 07/07/25 08:23 07/07/25 07:25 07/07/25 07:25 07/07/25 04:00 07/07/25 03:55 Narrative Exam Physical Exam General: Awake and in no acute distress. Conversational and non-toxic appearing. HEENT: thryoid gland palpated, more prominent on the left . Normocephalic, atraumatic, mucous membranes moist. Heart: Regular rate and rhythm, normal S1 and S2, no murmurs. Lungs: Clear to auscultation with no wheezing or crackles. Abdomen: Soft, nondistended, nontender, positive bowel sounds. ?No guarding or rebound tenderness. Neurologic: Alert and oriented x3, no gross neurological deficit, and patient able to move all 4 extremities. Extremities: bilateral trace edema,warm and tenderness prominent on left medial malleolus. Skin: No rash or ecchymoses. Objective Labs 07/08/25 05:17 07/08/25 05:17 Labs: Laboratory Results - last 24 hr 07/06/25 07/06/25 07/06/25 20:00 20:07 21:18 WBC 8.2 RBC 5.77 H Hgb 15.7 Hct 49.1 H MCV 85 MCH 27.2 MCHC 32.0 RDW Std Deviation 41.8 Plt Count 257 Neut % (Auto) 49 Lymph % (Auto) 39 [place] % (Auto) 8 Eos % (Auto) 1 Baso % (Auto) 2 Neut # (Auto) 4.1 Lymph # (Auto) 3.2 [place] # (Auto) 0.7 Eos # (Auto) 0.1 Baso # (Auto) 0.1 Immature Gran # (Auto) 0.03 H Absolute Nucleated RBC 0.00 Immature Gran % 0 Nucleated RBC % 0 PT 10.8 INR 1.0 APTT 25.7 Sodium 142 Potassium 3.8 Chloride 99 Carbon Dioxide 25.7 Anion Gap 17 H BUN 7 L Creatinine 0.7 Estim Creat Clear Calc 104.9 eGFR > 60 BUN/Creatinine Ratio 10 L Glucose [address] Glu mg/dL Hemoglobin A1c Calculated Osmolality 281 Calcium 9.4 Corrected Calcium 9.4 Phosphorus Magnesium 1.7 Total Bilirubin 0.7 AST 135 H ALT 60 H Alkaline Phosphatase 99 Troponin I < 0.002 B-Natriuretic Peptide < 20 Total Protein 7.6 Albumin 4.6 Globulin 3.0 Albumin/Globulin Ratio 1.5 Triglycerides Cholesterol LDL Cholesterol, Calc HDL Cholesterol Cholesterol/HDL Ratio TSH 1.99 Free T4 0.79 L Free T3 pg/dL 3.0 Ur Collection Type Clean Catch Urine Color Colorless A Urine Clarity Clear Urine pH 6.5 Ur Specific [place] 1.006 Urine Protein Negative Urine Glucose (UA) Negative Urine Ketones Negative Urine Blood Negative Urine Nitrite Negative Urine Bilirubin Negative Urine Urobilinogen (Auto) Negative Ur Leukocyte Esterase Negative Urine RBC 1 Urine WBC 1 Ur Squamous Epith Cells 2 Urine Bacteria None Urine Opiates Screen Negative Urine Fentanyl Screen Negative Ur Barbiturates Screen Negative U Amphetamin/Meth Scrn Negative U Benzodiazepines Scrn Negative U Cocaine Metab Screen Negative U Marijuana (THC) Screen Negative Ethyl Alcohol < 3.0 < 3.0 07/07/25 05:16 WBC 6.8 RBC 4.77 Hgb 13.1 D Hct 40.8 MCV 86 MCH 27.5 MCHC 32.1 RDW Std Deviation 41.8 Plt Count 232 Neut % (Auto) 52 Lymph % (Auto) 36 [place] % (Auto) 10 Eos % (Auto) 1 Baso % (Auto) 2 Neut # (Auto) 3.5 Lymph # (Auto) 2.4 [place] # (Auto) 0.7 Eos # (Auto) 0.1 Baso # (Auto) 0.1 Immature Gran # (Auto) 0.01 H Absolute Nucleated RBC 0.00 Immature Gran % 0 Nucleated RBC % 0 PT 11.4 INR 1.0 APTT Sodium 143 Potassium 3.8 Chloride 108 H Carbon Dioxide 25.3 Anion Gap 10 BUN 8 L Creatinine 0.6 Estim Creat Clear Calc 122.3 eGFR > 60 BUN/Creatinine Ratio [address] Glu mg/dL 117 Hemoglobin A1c 5.7 Calculated Osmolality 283 Calcium 9.9 Corrected Calcium 10.1 Phosphorus 3.4 Magnesium 2.0 Total Bilirubin 0.4 AST 20 ALT 18 Alkaline Phosphatase 108 Troponin I B-Natriuretic Peptide Total Protein 5.7 Albumin 3.7 D Globulin 2.0 L Albumin/Globulin Ratio 1.9 Triglycerides 61 Cholesterol 135 LDL Cholesterol, Calc 69 HDL Cholesterol 54 Cholesterol/HDL Ratio 2.5 L TSH Free T4 Free T3 pg/dL Ur Collection Type Urine Color Urine Clarity Urine pH Ur Specific [place] Urine Protein Urine Glucose (UA) Urine Ketones Urine Blood Urine Nitrite Urine Bilirubin Urine Urobilinogen (Auto) Ur Leukocyte Esterase Urine RBC Urine WBC Ur Squamous Epith Cells Urine Bacteria Urine Opiates Screen Urine Fentanyl Screen Ur Barbiturates Screen U Amphetamin/Meth Scrn U Benzodiazepines Scrn U Cocaine Metab Screen U Marijuana (THC) Screen Ethyl Alcohol Quality Measures Quality Measures VTE prophylaxis Assessment & Plan Assessment Current Active Medications: Generic Name Dose Route Start Last Admin Trade Name Freq PRN Reason Stop Dose Admin Acetaminophen 650 mg 07/06/25 23:17 Acetaminophen 325 Mg Tablet PO 08/05/25 23:16 Q6H PRN Fever >100.4 Acetaminophen 650 mg 07/06/25 23:17 Acetaminophen 325 Mg Tablet PO 08/05/25 23:16 Q6H PRN PAIN SCALE 1-3 (mild Albuterol/Ipratropium 3 ml 07/07/25 07:33 Albuterol/Ipratropium (Duoneb) Rt Nancy 3 Ml Nebu INH 08/06/25 07:32 Q2HR PRN SHORTNESS OF BREATH OR WHEEZE Bupropion HCl 150 mg 07/07/25 09:00 07/07/25 09:33 Bupropion Hcl Xl 150 Mg Tabcr PO 08/06/25 08:59 150 mg DAILY THANH Administration Enoxaparin Sodium 40 mg 07/07/25 09:00 07/07/25 09:31 Enoxaparin Sod Inj 40 Mg/0.4 Ml Syringe SC 07/21/25 08:59 40 mg QDAY THANH Administration Sodium Chloride 1,000 mls @ 100 mls/hr 07/06/25 19:45 07/07/25 05:30 Ns IV 08/05/25 19:44 100 mls/hr .Q10H THANH Administration Labetalol HCl 10 mg 07/06/25 19:31 Labetalol Inj 5 Mg/Ml Vial 20 Ml IVP 07/09/25 19:30 Q15M PRN HYPER Levothyroxine Sodium 75 mcg 07/07/25 09:00 07/07/25 09:32 Levothyroxine Sodium 25 Mcg Tablet PO 08/06/25 08:59 75 mcg ACBR THANH Administration Morphine Sulfate 1 mg 07/06/25 23:17 Morphine Sulf Inj 10 Mg/Ml Vial IVP 07/11/25 23:16 Q4HR PRN PAIN SCALE 7-10 (Severe Ondansetron HCl 4 mg 07/06/25 23:17 Ondansetron Inj 2 Mg/Ml Inj 2 Ml IVP 08/05/25 23:16 Q6H PRN NAUSEA OR VOMITING Protocol Oxycodone/Acetaminophen 1 tab 07/06/25 23:17 Oxycodone/Apap 5/325 Tablet PO 07/11/25 23:16 Q6H PRN PAIN SCALE 4-6 (Moderate Pantoprazole Sodium 40 mg 07/07/25 09:00 07/07/25 09:32 Pantoprazole 40 Mg Tablet PO 08/06/25 08:59 40 mg QDAY THANH Administration Sennosides 1 tab 07/06/25 23:17 Senna Tablet PO 08/05/25 23:16 QDAY PRN constipation Protocol Plan 55F with PMH of HTN, Max?s, asthma, GERD, JAI, presenting with transient speech disturbance, dizziness, dysphagia, and SOB. Admitted for Stroke workout and management #CVA workup # Likely Transient ischemic attack Presented with transient dysarthria, imbalance, and dysphagia; now resolved. NIHSS 0, CT head negative. Possible TIA vs ischemic stroke. On 07/07/24: MRI was negative for acute hemorrhage mass effect or midline shift, acute infarct Possible TIA has patient is symptoms resolved and head CT and MRI w/MRA was negative for any infart Plan - Q6H neuro checks - Nurse swallow screen - Speech evaluation - PT evaluation - Echocardiography with bubble study ordered, pending read # Hypertensive urgency History of HTN, BP elevated in ED to 180/130 Permissive HTN approach per neurology. 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 On 12/29/20: Thyroid biopsy ultrasound was done 05/13/25 thyroid ultrasound showed: Right thyroid 4.2 cm, upper pole nodule 3 x 3 mm, lower pole nodule 4 x 4 millimeter, left thyroid 4.7 cm, lower pole nodule 16 x 10 x 14 mm Plan - Resumed home med levothyroxine #Obstructive sleep apnea On CPAP at home, per patient 80% compliant. Plan: - CPAP nightly if needed # Asthma Has a history of asthma for which is well-controlled inhaler and Singulair. Plan - Resume home montelukast 10 mg PO # Acute liver injury AST 135, ALT 60 (AST:ALT 2:1). Alcohol level negative despite report of one drink yesterday. Likely non-alcoholic cause (possible supplement-related vs fatty liver). Repeat AST 20, ALT 18 plan - Continue to monitor LFTs Hospital management: Lines: peripheral IV Diet: Bowel: Senna GI prophylaxis: pantoprazole DVT prophylaxis: Lovenox Disposition: CVA workup CODE STATUS: Full code Patient seen and assessed under supervision of attending physician and discuss with senior resident Dr. Royal PGY-2 Barbara Steven MD PGY-1, Internal Medicine Attending Provider Attestation/Addendum I Adeline Royal MD reviewed the note and agree with the resident's assessment & plan with modifications/additions/exceptions as below. I have personally reviewed labs, imaging, home meds/prior records, examined the patient, formulated and discussed management plan with the IM team. 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 MRI ruled out CVA or demyelinating disease. Will complete stroke workup including echocardiogram, carotid ultrasound. Currently she has no neurological deficits or symptoms. Likely etiology of patient's symptoms due to anxiety/stress and possible esophageal stricture. Patient is following up with GI at [place] for her esophageal stricture management. If no significant finding on carotid ultrasound and echocardiogram, would discharge patient home. Currently tolerating p.o. diet well without any apparent dysphagia, recommended to follow-up with gastroenterology and endocrinology after discharge.
--- NOTE | 2025-07-07 11:47 | PC.PT ---
PT eval only. Patient is I with transfers and ambulation without AD.
--- NOTE | 2025-07-07 12:28 | PC.SS ---
SS met with patient regarding her d/c plan. Pt is alert/oriented. Pt was admitted for Possible Stroke. Pt confirmed demographic and contact information is correct on facesheet. Pt resides with and son. Pt ambulates independently without assistance or DME. Pt is ok with all ADLs. 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 Patient?s pharmacy of choice is [facility] on [address]. Pt named her , Brian Andino medical decision maker if she is unable. Patient?s choice is to return home upon d/c. Pt states she is not diabetic and is not on dialysis. Pt states she followed up with PCP 2 months ago. D/C plan: Return home Next of Kin: Brian Andino, , phone# [phone] PCP: Dr. Floyd Mitchell Address: Correct on facesheet
--- NOTE | 2025-07-07 14:40 | PD.RESCONSUL ---
HPI Data of Consult Requesting Physician: Adeline Royal MD Admitting Provider: David Solis MD Attending Provider: Adeline Royal MD Primary Care Provider: Physician No Primary/Family Consult Narrative History of present illness: Patient is a 55-year-old female with a past medical history of hypertension, Hypothyrodisim, seasonal allergies, asthma, and depression. Patient presented to the emergency room with a chief complain of dysphagia, dizziness, and headache. Patient stated these symptoms began at approximately 1: 00 PM in the evening and decided to come to the emergency room as her headache worsened and worsening dizziness. Paitient deneid facial droop. Denied lower or upper extremtiy weakness. Patient denied chest pain or shortness of breath. Patient denied seizure like activity. ER course: CT head negative Vitals: 162/103, HR 76, RR 18, T 98.4, spO 97% RA WBC 8.2 Hgb 15.7, hct 49.1, plt count 232 Na 142, K 3.8, chloride 99, HCO3 25.7 Anion 17, BUN Cr 0.7 Mg 1.7, AST 135 ALT 60Alkaline Phosphatase 99, Troponin <0.002 TSH 1.99, Free T4 0.79 PMH: HTN, hypothyroidism, Asthma, seasonal allergies, GERD, JAI, follows Dr. Pop Past Surgical History: C-sections, appendectomy, bladder surgery, shoulder surgery, tumor removal ? 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 cc:: cc: Adeline Royal MD Review of Systems Review of Systems Narrative Review of Systems: General appearance: NO weight change, NO fatigue, NO weakness, NO fever, NO chills, NO night sweats, No cough Skin: NO rash, NO itching, NO sores, NO moles HEENT: NO Trauma, NO nausea, NO vomiting, NO visual changes, NO blurry vision, NO double vision, NO tinnitus, NO vertigo, NO ear discharge, NO rhinorrhea, NO stuffiness, NO sneezing, NO allergy, NO epistaxis. NO Hoarseness, NO sore throat, NO swollen neck. Cardiac: NO Palpitations, NO dyspnea on exertion, NO orthopnea, NO paroxysmal nocturnal dyspnea, NO edema Respiratory: NO Shortness of Breath, NO Wheezing, NO Cough, NO Sputum, NO hemoptysis GI:NO appetite, NO nausea, NO vomiting, NO dysphagia, NO changes in bowel frequency, NO stool color, NO diarrhea, NO constipation, NO hemetemesis, NO hemorrhoids, NO melena, NO hematechezia, NO abdominal pain, NO jaundice Renal: NO frequency, NO hesitancy, NO urgency, NO hematuria, NO nocturia, NO incontinence MSK: NO muscle weakness, NO gout, NO arthritis, NO muscle stiffness Neuro: NO headaches, NO tremors, NO weakness, NO paralysis, NO seizures, NO loss of consciousness, NO numbness. Hem: NO anemia, NO easy bruising/bleeding, NO petechiae, NO purpura Endo: NO heat/cold intolerance, NO excessive sweating, NO polyuria, NO polydipsia, NO polyphagia, NO thyroid problems, NO diabetes Pysch: NO mood, NO anxiety, NO depression Exam Vital Signs Temp Pulse Resp BP Pulse Ox O2 Del Method FiO2 97.4 F 89 19 134/91 H 100 BiPAP 28 07/07/25 12:00 07/07/25 12:00 07/07/25 12:00 07/07/25 12:00 07/07/25 07:25 07/07/25 04:00 07/07/25 03:55 Narrative Exam General Appearance: Alert & Oriented X3, well-nourished female who is lying in bed in no acute distress HEENT: Skull symmetrical and atraumatic. Conjunctivae pin and moist. Pupils equal, round, reactive to light and accommodation (PERRL). External ear without lesion or discharge. Straight, nares patient, mucosa pink, no discharge. Cardio: Normal Rate and Rhythm with S1 and S2 heart sounds. No murmurs or extra heart sounds auscultated. No bruits on carotid auscultation. No peripheral edema or cyanosis. Lungs: Symmetric with good expansion. Chest and back non-tender. Breath sounds vesicular without crackles, wheezing or rhonchi Abdomen: Non-tender, Non-distended, Normal Reactive Bowel Sounds Neuro: Alert, cooperative, oriented to person, place, and time. Speech clear. CN grossly intact. Upper motor strength 5/5 and Lower motor strength 5/5. Sensation intact. Results Labs 07/08/25 05:17 07/08/25 05:17 Labs: Short CBC 07/06/25 07/07/25 Range/Units 20:00 05:16 WBC 8.2 6.8 (3.6-11.0) Thou/mm3 Hgb 15.7 13.1 D (12.0-16.0) g/dL Hct 49.1 H 40.8 (36.0-46.0) % Plt Count 257 232 (140-440) Thou/mm3 BMP 07/06/25 07/07/25 20:00 05:16 Sodium 142 143 Potassium 3.8 3.8 Chloride 99 108 H Carbon Dioxide 25.7 25.3 BUN 7 L 8 L Creatinine 0.7 0.6 Glucose 101 97 Calcium 9.4 9.9 Cardiac Enzymes 07/06/25 Range/Units 20:00 Troponin I < 0.002 (0.0-0.045) ng/mL Liver Function 07/06/25 07/07/25 Range/Units 20:00 05:16 Total Bilirubin 0.7 0.4 (0.3-1.2) mg/dL AST 135 H 20 (0-34) U/L ALT 60 H 18 (10-49) U/L Alkaline Phosphatase 99 108 (46-116) U/L Albumin 4.6 3.7 D (3.5-5.0) gm/dL Urine 07/06/25 Range/Units 20:07 Urine Color Colorless A (Lt Yel-Yel) Urine Clarity Clear (Clear/Hazy) Urine pH 6.5 (5.0-7.0) Ur Specific [place] 1.006 (1.001-1.035) Urine Protein Negative (Neg - Trace) Urine Glucose (UA) Negative (Negative) Quality Measures Quality Measures VTE prophylaxis Medications Home Medications and Allergies Home Medications ?Medication ?Instructions ?Recorded ?Confirmed ?Type levothyroxine 75 mcg tablet 75 mcg PO QDAY 12/27/20 07/07/25 History montelukast 10 mg tablet 10 mg PO QDAY 12/27/20 07/07/25 History (Singulair) budesonide 0.5 mg/2 mL suspension 0.5 mg inhalation DAILY 07/07/25 07/07/25 History for nebulization bupropion HCl 150 mg 24 hr tablet, 150 mg PO DAILY 07/07/25 07/07/25 History extended release ergocalciferol (vitamin D2) 1,250 1,250 mcg PO .once a week 07/07/25 07/07/25 History mcg (50,000 unit) capsule famotidine 40 mg tablet 40 mg PO DAILY 07/07/25 07/07/25 History ipratropium 0.5 mg-albuterol 3 mg 2.5 ml inhalation DAILY 07/07/25 07/07/25 History (2.5 mg base)/3 mL nebulization soln ketoconazole 2 % topical cream 1 applic topical DAILY 07/07/25 07/07/25 History levocetirizine 5 mg tablet 5 mg PO DAILY 07/07/25 07/07/25 History pantoprazole 20 mg tablet,delayed 20 mg PO DAILY 07/07/25 07/07/25 History release valsartan 80 mg tablet 80 mg PO DAILY 07/07/25 07/07/25 History Allergies Allergy/AdvReac Type Severity Reaction Status Date / Time hydrocodone Allergy Severe HALLUCINATI Verified 07/06/25 19:19 ONS Visit Medications Acetaminophen (Acetaminophen 325 Mg Tablet) 650 mg PO Q6H PRN PRN Reason: Fever >100.4 Stop: 08/05/25 23:16 Acetaminophen (Acetaminophen 325 Mg Tablet) 650 mg PO Q6H PRN PRN Reason: PAIN SCALE 1-3 (mild Stop: 08/05/25 23:16 Albuterol/Ipratropium (Albuterol/Ipratropium (Duoneb) Rt Nancy 3 Ml Nebu) 3 ml INH Q2HR PRN PRN Reason: SHORTNESS OF BREATH OR WHEEZE Stop: 08/06/25 07:32 Bupropion HCl (Bupropion Hcl Xl 150 Mg Tabcr) 150 mg PO DAILY THANH Stop: 08/06/25 08:59 Last Admin: 07/07/25 09:33 Dose: 150 mg Enoxaparin Sodium (Enoxaparin Sod Inj 40 Mg/0.4 Ml Syringe) 40 mg SC QDAY THANH Stop: 07/21/25 08:59 Last Admin: 07/07/25 09:31 Dose: 40 mg Labetalol HCl (Labetalol Inj 5 Mg/Ml Vial 20 Ml) 10 mg IVP Q15M PRN PRN Reason: HYPER Stop: 07/09/25 19:30 Levothyroxine Sodium (Levothyroxine Sodium 25 Mcg Tablet) 75 mcg PO ACBR THANH Stop: 08/06/25 08:59 Last Admin: 07/07/25 09:32 Dose: 75 mcg Morphine Sulfate (Morphine Sulf Inj 10 Mg/Ml Vial) 1 mg IVP Q4HR PRN PRN Reason: PAIN SCALE 7-10 (Severe Stop: 07/11/25 23:16 Ondansetron HCl (Ondansetron Inj 2 Mg/Ml Inj 2 Ml) 4 mg IVP Q6H PRN; Protocol PRN Reason: NAUSEA OR VOMITING Stop: 08/05/25 23:16 Oxycodone/Acetaminophen (Oxycodone/Apap 5/325 Tablet) 1 tab PO Q6H PRN PRN Reason: PAIN SCALE 4-6 (Moderate Stop: 07/11/25 23:16 Pantoprazole Sodium (Pantoprazole 40 Mg Tablet) 40 mg PO QDAY THANH Stop: 08/06/25 08:59 Last Admin: 07/07/25 09:32 Dose: 40 mg Sennosides (Senna Tablet) 1 tab PO QDAY PRN; Protocol PRN Reason: constipation Stop: 08/05/25 23:16 Discontinued Medications Sodium Chloride (Ns) 1,000 mls @ 100 mls/hr IV .Q10H THANH Stop: 08/05/25 19:44 Last Admin: 07/07/25 05:30 Dose: 100 mls/hr Magnesium Sulfate (Magnesium Sulfate Ivpb) 2 gm in 50 mls @ 25 mls/hr IV X1 ONE Stop: 07/07/25 02:05 Last Infusion: 07/07/25 06:06 Dose: Infused Ondansetron HCl (Ondansetron Inj 2 Mg/Ml Inj 2 Ml) 4 mg IVP Q4HR PRN PRN Reason: NAUSEA OR VOMITING Stop: 08/05/25 19:30 Assessment & Plan Plan Patient is a 55-year-old female with a past medical history of hypertension, Hypothyrodisim, seasonal allergies, asthma, and depression who was admitted for hypertensive urgency and dysphagia with dsyarthria. #intractable headache, likely secondary to hypertensive urgency #Aphasia, #Dysphagia #Stroke Ruled Out Patient presented with hypertensive urgency given diastolic blood pressure >110. Patient stated worsening hypertension at home noted in the morning then described dsyphagia and word finding difficulty that was very brief. Denied motor strength weakness. No facial droop noted. Symptoms likely secondary to hypertensive urgency vs stroke less likely as MRI negative vs TIA less as no motor symptoms. Diagnostic: BP 178/129 MRI: No acute infarct. CT head: Negative for acute hemorrhage, mass effect or midline shift. Xray: No acitve disease. Lipid: Cholesterol 135, Triglyercides 61, LDL 69, HDL 54 A1c 5.7 TSH 1.99 Free T4 0.79 Plan -Follow up on Echo -No Aspirin or Atorvastatin recommended at this time -Blood Pressure Control #Hypertensive Urgency #Hypertension #Hypothyrodism #depression #asthma #seasonal allergies #tansiminities, resolved. - The patient's plan was discussed with attending Dr. Luna Murillo MD PGY2 Internal Medicine Attending Provider Attestation/Addendum I personally have seen and examined the patient at the bedside and agreed with the residents findings, assessment and plan of care. Impression : Headache likely from hypertensive emergency Hypertension Ruled out stroke Plan/recommendations: Continue with the blood pressure management, advised lifestyle changes No need for aspirin or statin at this time Follow-up on rest of the workup.
[2025-07-07 16:43] LABS: Alcohol, Blood Medical 467.5 mg/dL (0-10.0)
[2025-07-07] MEDS: ACETAMINOPHEN 325 MG TABLET 650 MG PO (19:15)
[2025-07-08] VITALS (7 sets, daily range): BP systolic 126–152; BP diastolic 77–97; PULSE 67–95; RESP 17–95; TEMP 36.1–36.2; O2SAT 95–97; BMI 34.9
[2025-07-08] MEDS: LEVOTHYROXINE SODIUM 25 MCG TABLET 75 MCG PO (05:19)
[2025-07-08 06:07] LABS: Basophils # (Auto) 0.1 Thou/mm3 (0.0-0.2); Basophils % (Auto) 1 % (0-2.5); Eosinophils # (Auto) 0.1 Thou/mm3 (0.0-0.5); Eosinophils % (Auto) 2 % (0-10); Hematocrit 42.1 % (36.0-46.0); Hemoglobin 13.8 g/dL (12.0-16.0); Immature Granulocytes Auto 0.01 Thou/mm3 (0.00-0.00); Lymphocytes # (Auto) 2.3 Thou/mm3 (1.0-4.8); Lymphocytes % (Auto) 42 % (10-50); Mean Corpuscular HGB Conc 32.8 g/dl (31.0-37.0); Mean Corpuscular Hemoglobin 27.7 pg (25.0-35.0); Mean Corpuscular Volume 84 fL (80-100); Monocytes # (Auto) 0.5 Thou/mm3 (0.0-0.8); Monocytes % (Auto) 10 % (0-12); Neutrophils # (Auto) 2.5 Thou/mm3 (1.8-7.7); Neutrophils % (Auto) 46 % (37-80); Nucleated Red Blood Cell # 0.00 Thou/mm3 (0.00-0.00); Nucleated Red Blood Cell % 0 /100 WBC (0); Platelet Count 232 Thou/mm3 (140-440); RDW Standard Deviation 41.0 fL (36.4-46.3); Red Blood Count 4.99 Miln/mm3 (4.00-5.20); White Blood Count 5.5 Thou/mm3 (3.6-11.0)
[2025-07-08 06:37] LABS: Alanine Aminotransferase 19 U/L (10-49); Albumin, Serum 3.8 gm/dL (3.5-5.0); Albumin/Globulin Ratio 1.9 (1.2-2.2); Alkaline Phosphatase 108 U/L (46-116); Anion Gap 9 (7-16); Aspartate Amino Transferase 20 U/L (0-34); BUN/Creatinine Ratio 10 Ratio (12-20); Bilirubin,Total 0.5 mg/dL (0.3-1.2); Blood Urea Nitrogen 6 mg/dL (9-23); Calcium 10.0 mg/dL (8.3-10.6); Calcium (Corrected) 10.2 mg/dL (8.5-10.1); Carbon Dioxide 25.5 mMol/L (20.0-31.0); Chloride 109 mMol/L (98-107); Creatinine (Component) 0.6 mg/dL (0.6-1.3); Estimated Creatinine Clearance 122.3 mL/min (>60); Globulin 2.0 gm/dL (2.3-3.5); Glucose 92 mg/dL (74-106); Magnesium 2.1 mg/dL (1.6-2.6); Osmolality,Calculated 282 (275-295); Phosphorous 4.1 mg/dL (2.4-5.1); Potassium 3.7 mMol/L (3.4-5.1); Sodium 143 mMol/L (136-145); Total Protein 5.8 gm/dL (5.7-8.2); eGFR > 60 See Note
--- NOTE | 2025-07-08 08:12 | CHAP ---
Patient was visited by a Spiritual Care Volunteer on 07/07/2025 between 0900 and 1200 and received comfort, encouragement and/or prayer.
[2025-07-08] MEDS: VALSARTAN 80 MG TABLET PO (08:21)
[2025-07-08] MEDS: PANTOPRAZOLE 40 MG TABLET PO (08:22)
[2025-07-08] MEDS: ENOXAPARIN SOD INJ 40 MG/0.4 ML SYRINGE SC (08:22)
[2025-07-08] MEDS: MONTELUKAST SODIUM 10 MG TABLET PO (08:22)
[2025-07-08] MEDS: ONDANSETRON INJ 2 MG/ML INJ 2 ML 4 MG IVP (08:25)
[2025-07-08] MEDS: KETOROLAC INJ 30 MG/ML VIAL IVP (08:26)
--- NOTE | 2025-07-08 09:19 | PC.SS ---
Follow up note: Pt will d/c home.
--- NOTE | 2025-07-08 09:57 | PD.RESDS ---
Planned Discharge Date 07/08/25 DS: Providers Provider Date of admission: 07/06/25 23:17 Primary care physician: Physician No Primary/Family Admitting Provider: David Solis MD Attending Provider on Admission: Adeline Royal MD Consults: 07/06/25 19:31 Consult to Neurology / Tele-Neurology Routine Comment: Consulting Provider: [facility] 07/06/25 23:17 Consult to Neurology / Tele-Neurology Routine Comment: Consulting Provider: Quoc Carrasco PT [Referral Physical Therapy] Routine Comment: Physician Instructions: Referral Speech Therapy Routine Comment: 07/08/25 08:50 Consult to Cardiology Stat Comment: CVA Workup Consulting Provider: Rafi Pop Attending Provider on DC: Dr. Doretha Scherer MD Discharging Provider: Dr. Doretha Scherer MD Anticipated date of discharge: 07/08/25 DS: Diagnosis Problem List Completed Was Problem List Reviewed/Reconciled?: Yes Hospital Course Hospital Course Hospital course: Summary 55F with PMH of HTN, Max?s, asthma, GERD, JAI, presented to [facility] ED on 07/06/25 for transient speech disturbance, dizziness, dysphagia, headache and SOB. Admitted for CVA workout and management. In ED CT head was done, negative for acute hemorrhage. MRI was also negative acute infarct. Patient was managed with pain medication, Zofran for nausea, and labetalol for the hypertensive urgency. By 07/07/2025 patient noted significant improvement in the dizziness, dysphagia and shortness of breath. Neurology was consulted and recommended blood pressure control and no aspirin and atorvastatin for this patient. Echo was negative for PFO or ASD, EF was 60- 65%. For the hypertensive urgency was well-controlled valsartan for which the patient noted and improving in headache. Additionally recommend for patient to follow-up with an outpatient digital marketing manager for high calcium level. Throughout the hospital course patient other problems were managed and her condition improved remarkably with progression of hospital course. Further plan to discharge the patient home she is hemodynamically stable to be discharged home to self care with the following instructions. Discharge recommendation: -Follow up with PCP within 1 week of discharge, if you do not have a primary care physician you can come see us at the [facility] by calling [phone] -Your symptoms were likely secondary to Hypertension therefore please monitor BP daily and follow up with your primary care regarding if any adjustments needs to be made with your blood pressure medications. -Follow-up with Cardiology outpatient in 1-2 week and obtain carotid duplex US. -Follow-up with digital marketing manager as outpatient for lab values -Continue rest of medications as previously prescribed -Return to the ED or call EMS if symptoms return and/or worsen Hospital Diagnoses: #CVA workup # Likely Transient ischemic attack # Hypertensive urgency # Max's thyroiditis #Obstructive sleep apnea # Asthma # Acute liver injury Patient seen and assessed under supervision of attending physician and discuss with senior resident Dr. Royal PGY-2 Barbara Steven MD PGY-1, Internal Medicine Time Spent with Patient Time attestation: Total time spent providing and/or coordinating discharge services: Time spent: Greater than 30 minutes Exam Vital Signs Temp Pulse Resp BP Pulse Ox O2 Del Method FiO2 97.1 F 72 18 145/97 H 95 Room Air 28 07/08/25 08:00 07/08/25 08:21 07/08/25 08:00 07/08/25 08:21 07/08/25 08:00 07/08/25 08:00 07/07/25 03:55 Narrative Exam General: Awake and in no acute distress. Conversational and non-toxic appearing. HEENT: thryoid gland palpated, more prominent on the left . Normocephalic, atraumatic, mucous membranes moist. Heart: Regular rate and rhythm, normal S1 and S2, no murmurs. Lungs: Clear to auscultation with no wheezing or crackles. Abdomen: Soft, nondistended, nontender, positive bowel sounds. ?No guarding or rebound tenderness. Neurologic: Alert and oriented x3, no gross neurological deficit, and patient able to move all 4 extremities. Extremities: bilateral trace edema(resolving),warm and tenderness prominent on left medial malleolus (resolve). Skin: No rash or ecchymoses. Discharge Plan Plan Patient Disposition: HOME (Self Care) Patient condition on transfer: Stable Care Plan Goals: -Follow up with PCP within 1 week of discharge, if you do not have a primary care physician you can come see us at the [facility] by calling [phone] -Your symptoms were likely secondary to Hypertension therefore please monitor BP daily and follow up with your primary care regarding if any adjustments needs to be made with your blood pressure medications. -Follow up with Cardiology outpatient in 1-2 week and obtain Caritid Duplex US. -Continue rest of medications as previously prescribed -Return to the ED or call EMS if symptoms return and/or worsen Prescriptions/Referrals Prescriptions/Med Rec: Continued levothyroxine 75 mcg Tablet 75 mcg PO QDAY montelukast [Singulair] 10 mg Tablet 10 mg PO QDAY ipratropium-albuterol 0.5 mg-3 mg(2.5 mg base)/3 mL solution for nebulization 2.5 ml INHALATION DAILY Patient Comments: USE 1 VIAL VIAL NEBULIZER EVERY 4-6 HOURS NEEDED famotidine 40 mg tablet 40 mg PO DAILY Patient Comments: TAKE 1 TABLET BY MOUTH EVERY DAY ketoconazole 2 % cream 1 applic TOPICAL DAILY Patient Comments: APPLY 1 APPLICATION TOPICALLY ONCE A DAY bupropion HCl 150 mg tablet extended release 24 hr 150 mg PO DAILY levocetirizine 5 mg tablet 5 mg PO DAILY Patient Comments: TAKE 1 TABLET BY MOUTH IN THE EVENING ONCE A DAY NEEDED FOR ALLERGIES FOR 90 DAYS ergocalciferol (vitamin D2) 1,250 mcg (50,000 unit) capsule 1,250 mcg PO .once a week Patient Comments: TAKE 1 CAPSULE BY MOUTH WEEKLY valsartan 80 mg tablet 80 mg PO DAILY Patient Comments: TAKE 1 TABLET BY MOUTH EVERY DAY budesonide 0.5 mg/2 mL suspension for nebulization 0.5 mg INHALATION DAILY Patient Comments: USE 1 VIAL VIA NEBULIZER TWICE A DAY Held pantoprazole 20 mg tablet,delayed release (DR/EC) 20 mg PO DAILY Hold Instructions: Resume on 07/22/25. please follow up with your primary care before resuming Patient Comments: TAKE 1 TABLET BY MOUTH EVERY DAY Referrals: Rafi Pop MD [Physician] - No Primary/Family,Physician [Primary Care Provider] - Patient/Caregiver Discharge Instructions Print Language: Mosotho Stand Alone Forms: Mariajose Award Info., Patient Portal Info Letter Discharge Order Discharge Orders: Discharge (Routine); Ordered 07/08/25 Ordered By: Hodan Royal Quality Discharge Quality Measures VTE prophylaxis Attestestation Attestation I attest that I was physically present for the evaluation, physical examination, lab and imaging review of the patient with the residents. I discussed the case with the residents and agree with the findings and plans of care as documented above. Doretha Scherer MD
--- NOTE | 2025-07-08 10:11 | ESPR_ITS ---
Documentation for date of: 07/08/25 Subjective Subjective Interval history: Patient is a 55-year-old female with a past medical history of hypertension, Hypothyrodisim, seasonal allergies, asthma, and depression who was admitted intractable headache, likely seocndary to hypertensive urgency, less likely secondary to TIA. 07/08/2025: No overnight events, reported by patient. Paitnet denied chest pain or SOB. History of migraines, consuled and need to return to PCP and follow on medication for migraines. Counseled on need for improved BP. No aspirin/Plavix or statins recommened at this time. Exam Vital Signs Temp Pulse Resp BP Pulse Ox O2 Del Method FiO2 97.1 F 72 18 145/97 H 95 Room Air 28 07/08/25 08:00 07/08/25 08:21 07/08/25 08:00 07/08/25 08:21 07/08/25 08:00 07/08/25 08:00 07/07/25 03:55 Narrative Exam General Appearance: Alert & Oriented X3, well-nourished female who is lying in bed in no acute distress HEENT: Skull symmetrical and atraumatic. Conjunctivae pin and moist. Pupils equal, round, reactive to light and accommodation (PERRL). External ear without lesion or discharge. Straight, nares patient, mucosa pink, no discharge. Cardio: Normal Rate and Rhythm with S1 and S2 heart sounds. No murmurs or extra heart sounds auscultated. No bruits on carotid auscultation. No peripheral edema or cyanosis. Lungs: Symmetric with good expansion. Chest and back non-tender. Breath sounds vesicular without crackles, wheezing or rhonchi Abdomen: Non-tender, Non-distended, Normal Reactive Bowel Sounds Neuro: Alert, cooperative, oriented to person, place, and time. Speech clear. CN grossly intact. Upper motor strength 5/5 and Lower motor strength 5/5. Sensation intact. Objective Labs 07/08/25 05:17 07/08/25 05:17 Labs: Laboratory Results - last 24 hr 07/06/25 07/08/25 20:00 05:17 WBC 5.5 RBC 4.99 Hgb 13.8 Hct 42.1 MCV 84 MCH 27.7 MCHC 32.8 RDW Std Deviation 41.0 Plt Count 232 Neut % (Auto) 46 Lymph % (Auto) 42 Jackson % (Auto) 10 Eos % (Auto) 2 Baso % (Auto) 1 Neut # (Auto) 2.5 Lymph # (Auto) 2.3 Jackson # (Auto) 0.5 Eos # (Auto) 0.1 Baso # (Auto) 0.1 Immature Gran # (Auto) 0.01 H Absolute Nucleated RBC 0.00 Immature Gran % 0 Nucleated RBC % 0 Sodium 143 Potassium 3.7 Chloride 109 H Carbon Dioxide 25.5 Anion Gap 9 BUN 6 L Creatinine 0.6 Estim Creat Clear Calc 122.3 eGFR > 60 BUN/Creatinine Ratio 10 L Glucose 92 Calculated Osmolality 282 Calcium 10.0 Corrected Calcium 10.2 H Phosphorus 4.1 Magnesium 2.1 Total Bilirubin 0.5 AST 20 ALT 19 Alkaline Phosphatase 108 Total Protein 5.8 Albumin 3.8 Globulin 2.0 L Albumin/Globulin Ratio 1.9 Ethyl Alcohol 467.5 H* Quality Measures Quality Measures VTE prophylaxis Assessment & Plan Assessment Current Active Medications: Generic Name Dose Route Start Last Admin Trade Name Freq PRN Reason Stop Dose Admin Acetaminophen 650 mg 07/06/25 23:17 Acetaminophen 325 Mg Tablet PO 08/05/25 23:16 Q6H PRN Fever >100.4 Acetaminophen 650 mg 07/06/25 23:17 07/07/25 19:15 Acetaminophen 325 Mg Tablet PO 08/05/25 23:16 650 mg Q6H PRN Administration PAIN SCALE 1-3 (mild Albuterol/Ipratropium 3 ml 07/07/25 07:33 Albuterol/Ipratropium (Duoneb) Rt Nancy 3 Ml Nebu INH 08/06/25 07:32 Q2HR PRN SHORTNESS OF BREATH OR WHEEZE Bupropion HCl 150 mg 07/07/25 09:00 07/07/25 09:33 Bupropion Hcl Xl 150 Mg Tabcr PO 08/06/25 08:59 150 mg DAILY THANH Administration Enoxaparin Sodium 40 mg 07/07/25 09:00 07/08/25 08:22 Enoxaparin Sod Inj 40 Mg/0.4 Ml Syringe SC 07/21/25 08:59 40 mg QDAY THANH Administration Labetalol HCl 10 mg 07/06/25 19:31 Labetalol Inj 5 Mg/Ml Vial 20 Ml IVP 07/09/25 19:30 Q15M PRN HYPER Levothyroxine Sodium 75 mcg 07/07/25 09:00 07/08/25 05:19 Levothyroxine Sodium 25 Mcg Tablet PO 08/06/25 08:59 75 mcg ACBR THANH Administration Montelukast Sodium 10 mg 07/08/25 09:00 07/08/25 08:22 Montelukast Sodium 10 Mg Tablet PO 08/07/25 08:59 10 mg QDAY THANH Administration Morphine Sulfate 1 mg 07/06/25 23:17 Morphine Sulf Inj 10 Mg/Ml Vial IVP 07/11/25 23:16 Q4HR PRN PAIN SCALE 7-10 (Severe Ondansetron HCl 4 mg 07/06/25 23:17 07/08/25 08:25 Ondansetron Inj 2 Mg/Ml Inj 2 Ml IVP 08/05/25 23:16 4 mg Q6H PRN Administration NAUSEA OR VOMITING Protocol Oxycodone/Acetaminophen 1 tab 07/06/25 23:17 Oxycodone/Apap 5/325 Tablet PO 07/11/25 23:16 Q6H PRN PAIN SCALE 4-6 (Moderate Pantoprazole Sodium 40 mg 07/07/25 09:00 07/08/25 08:22 Pantoprazole 40 Mg Tablet PO 08/06/25 08:59 40 mg QDAY THANH Administration Sennosides 1 tab 07/06/25 23:17 Senna Tablet PO 08/05/25 23:16 QDAY PRN constipation Protocol Valsartan 80 mg 07/08/25 09:00 07/08/25 08:21 Valsartan 80 Mg Tablet PO 08/07/25 08:59 80 mg DAILY THANH Administration Plan Patient is a 55-year-old female with a past medical history of hypertension, Hypothyrodisim, seasonal allergies, asthma, and depression who was admitted for hypertensive urgency and dysphagia with dsyarthria. #intractable headache, likely secondary to hypertensive urgency #Aphasia, #Dysphagia #Stroke Ruled Out Patient presented with hypertensive urgency given diastolic blood pressure >110. Patient stated worsening hypertension at home noted in the morning then described dsyphagia and word finding difficulty that was very brief. Denied motor strength weakness. No facial droop noted. Symptoms likely secondary to hypertensive urgency vs stroke less likely as MRI negative vs TIA less as no motor symptoms. Diagnostic: BP 178/129 MRI: No acute infarct. CT head: Negative for acute hemorrhage, mass effect or midline shift. Xray: No acitve disease. Lipid: Cholesterol 135, Triglyercides 61, LDL 69, HDL 54 A1c 5.7 TSH 1.99 Free T4 0.79 Echo (07/07/2025): Negative Bubble Study. Normal LV size and function w/ EF 60 to 65% Plan -Follow up on Echo -No Aspirin or Atorvastatin recommended at this time -Blood Pressure Control #Hypertensive Urgency #Hypertension #Hypothyrodism #depression #asthma #seasonal allergies #tansiminities, resolved. - The patient's plan was discussed with attending Dr. Luna Murillo MD PGY2 Internal Medicine Attending Provider Attestation/Addendum I personally have seen and examined the patient at the bedside and agreed with resident's findings, assessment and plan of care. Impression headache: Secondary to hypertensive urgency Hypertension, hypothyroidism, depression, resolving transaminitis Plan/recommendations: Continue with blood pressure control follow-up with echocardiogram.
--- NOTE | 2025-07-08 18:15 | PD.RESCONSUL ---
HPI Data of Consult Requesting Physician: Adeline Royal MD Admitting Provider: David Solis MD Attending Provider: Adeline Royal MD Primary Care Provider: Physician No Primary/Family Consult Narrative History of present illness: A 55-year-old female with a history of hypertension, Max?s thyroiditis, asthma, GERD, obstructive sleep apnea (on CPAP), and irregular heartbeat (under cardiology care) presented to the ED after experiencing a brief episode of word-finding difficulty lasting less than a minute, transient dizziness, which resolved subsequntly but also persistent difficulty swallowing saliva, mild chest tightness, shortness of breath who tried water and antacid without relief. BP was elevated at home, prompting ED visit. Pt reported chronic fatigue, weight gain (14 lbs), and bilateral lower extremity edema over the past 5-6 weeks. Denied persistent weakness, numbness, double vision, syncope, or chest pain. Patient was managed with pain medication, Zofran for nausea, and labetalol for the hypertensive urgency. Per neurology consult, patient was in permissive hypertension initially and taken off valsartan. ED Course: Stroke alert called; CT head negative for acute hermorrhage. Mild liver enzyme elevation (AST 135, ALT 60). Tele-neurology evaluation: Suspected TIA or stroke mimic, not a candidate for thrombolysis, recommended further imaging (MRI/MRA), echo, and telemetry. MRI came out negative for acute infarct. Echocardiogram TTE was negative for PFO or ASD; EF was 60-65%. PMHx: Hypertension, Max?s thyroiditis, asthma, GERD, JAI, irregular heartbeat (under cardiology care). PSHx: Multiple C-sections, knee, shoulder, bladder surgeries, tumor removal (benign), appendectomy. Meds: Valsartan, Levothyroxine, asthma inhaler, various supplements (B6, B2, CoQ10, turmeric, biotin, chicory root, memory supplement). Allergies: Vicodin, environmental allergens, shellfish (tolerates small amounts). FHx: No premature stroke or cardiovascular disease. SHx: No tobacco or recreational drug use. Occasional alcohol (1-2 drinks weekends). 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 Lives with and son. cc:: cc: Adeline Royal MD Exam Vital Signs Temp Pulse Resp BP Pulse Ox O2 Del Method FiO2 97.2 F 78 18 126/77 97 Room Air 28 07/08/25 11:56 07/08/25 11:56 07/08/25 11:56 07/08/25 11:56 07/08/25 11:56 07/08/25 11:56 07/07/25 03:55 Narrative Exam General: Alert and oriented x3, No apparent distress. Skin: Intact, Warm, no rashes. HEENT: Normocephalic, Atraumatic. Normal neck range of motion, Supple. Trachea midline. Noted Thyroid gland enlargement upon palpation Lt >Rt. Respiratory: Lungs are clear to auscultation, Breath sounds are equal bilaterally with equal chest expansion. Cardiovascular: RRR, normal S1, S2, No murmurs. Distal pulses 2+ Abdomen: Abdomen soft, non-distended, without erythema, or lesions. Normotensive bowel sounds x4. Percussion tympanic. Palpation nontender in all four quadrants. No organomagely. No guarding or rebound present. Musculoskeletal/Extremities: No erythema, swelling, tenderness of any joints. Trace b/l pitting edema noted. DP pulses +2/3 b/l. Full active ROM of all four extremities. Neurologic: NEURO: Oriented x3, cranial nerves II to XII grossly intact. Cerebellar exam ([id number], [id number]-[id number]) intact. Muscle strength 5/5 on UE and LE b/l, Moves extremities x4. Sensation intact to gross touch along C6-T1 and L2-S1 dermatomes. No focal neurologic deficits noted Psych: Thoughts linear and responses appropriate. Results Labs 07/08/25 05:17 07/08/25 05:17 Labs: Short CBC 07/08/25 Range/Units 05:17 WBC 5.5 (3.6-11.0) Thou/mm3 Hgb 13.8 (12.0-16.0) g/dL Hct 42.1 (36.0-46.0) % Plt Count 232 (140-440) Thou/mm3 BMP 07/08/25 05:17 Sodium 143 Potassium 3.7 Chloride 109 H Carbon Dioxide 25.5 BUN 6 L Creatinine 0.6 Glucose 92 Calcium 10.0 Liver Function 07/08/25 Range/Units 05:17 Total Bilirubin 0.5 (0.3-1.2) mg/dL AST 20 (0-34) U/L ALT 19 (10-49) U/L Alkaline Phosphatase 108 (46-116) U/L Albumin 3.8 (3.5-5.0) gm/dL Quality Measures Quality Measures VTE prophylaxis Medications Home Medications and Allergies Home Medications ?Medication ?Instructions ?Recorded ?Confirmed ?Type levothyroxine 75 mcg tablet 75 mcg PO QDAY 12/27/20 07/07/25 History montelukast 10 mg tablet 10 mg PO QDAY 12/27/20 07/07/25 History (Singulair) budesonide 0.5 mg/2 mL suspension 0.5 mg inhalation DAILY 07/07/25 07/07/25 History for nebulization bupropion HCl 150 mg 24 hr tablet, 150 mg PO DAILY 07/07/25 07/07/25 History extended release ergocalciferol (vitamin D2) 1,250 1,250 mcg PO .once a week 07/07/25 07/07/25 History mcg (50,000 unit) capsule famotidine 40 mg tablet 40 mg PO DAILY 07/07/25 07/07/25 History ipratropium 0.5 mg-albuterol 3 mg 2.5 ml inhalation DAILY 07/07/25 07/07/25 History (2.5 mg base)/3 mL nebulization soln ketoconazole 2 % topical cream 1 applic topical DAILY 07/07/25 07/07/25 History levocetirizine 5 mg tablet 5 mg PO DAILY 07/07/25 07/07/25 History pantoprazole 20 mg tablet,delayed 20 mg PO DAILY 07/07/25 07/07/25 History release Held on 07/08/25. Instructions: Resume on 07/22/25. please follow up with your primary care before resuming valsartan 80 mg tablet 80 mg PO DAILY 07/07/25 07/07/25 History Allergies Allergy/AdvReac Type Severity Reaction Status Date / Time hydrocodone Allergy Severe HALLUCINATI Verified 07/06/25 19:19 ONS Visit Medications Discontinued Medications Acetaminophen (Acetaminophen 325 Mg Tablet) 650 mg PO Q6H PRN PRN Reason: Fever >100.4 Stop: 08/05/25 23:16 Acetaminophen (Acetaminophen 325 Mg Tablet) 650 mg PO Q6H PRN PRN Reason: PAIN SCALE 1-3 (mild Stop: 08/05/25 23:16 Last Admin: 07/07/25 19:15 Dose: 650 mg Albuterol/Ipratropium (Albuterol/Ipratropium (Duoneb) Rt Nancy 3 Ml Nebu) 3 ml INH Q2HR PRN PRN Reason: SHORTNESS OF BREATH OR WHEEZE Stop: 08/06/25 07:32 Bupropion HCl (Bupropion Hcl Xl 150 Mg Tabcr) 150 mg PO DAILY THANH Stop: 08/06/25 08:59 Last Admin: 07/08/25 11:39 Dose: Not Given Enoxaparin Sodium (Enoxaparin Sod Inj 40 Mg/0.4 Ml Syringe) 40 mg SC QDAY [facility] Stop: 07/21/25 08:59 Last Admin: 07/08/25 08:22 Dose: 40 mg Sodium Chloride (Ns) 1,000 mls @ 100 mls/hr IV .Q10H [facility] Stop: 08/05/25 19:44 Last Admin: 07/07/25 05:30 Dose: 100 mls/hr Magnesium Sulfate (Magnesium Sulfate Ivpb) 2 gm in 50 mls @ 25 mls/hr IV X1 ONE Stop: 07/07/25 02:05 Last Infusion: 07/07/25 06:06 Dose: Infused Ketorolac Tromethamine (Ketorolac Inj 30 Mg/Ml Vial) 30 mg IVP X1 ONE Stop: 07/08/25 08:18 Last Admin: 07/08/25 08:26 Dose: 30 mg Labetalol HCl (Labetalol Inj 5 Mg/Ml Vial 20 Ml) 10 mg IVP Q15M PRN PRN Reason: HYPER Stop: 07/09/25 19:30 Levothyroxine Sodium (Levothyroxine Sodium 25 Mcg Tablet) 75 mcg PO ACBR THANH Stop: 08/06/25 08:59 Last Admin: 07/08/25 05:19 Dose: 75 mcg Montelukast Sodium (Montelukast Sodium 10 Mg Tablet) 10 mg PO QDAY THANH Stop: 08/07/25 08:59 Last Admin: 07/08/25 08:22 Dose: 10 mg Morphine Sulfate (Morphine Sulf Inj 10 Mg/Ml Vial) 1 mg IVP Q4HR PRN PRN Reason: PAIN SCALE 7-10 (Severe Stop: 07/11/25 23:16 Ondansetron HCl (Ondansetron Inj 2 Mg/Ml Inj 2 Ml) 4 mg IVP Q4HR PRN PRN Reason: NAUSEA OR VOMITING Stop: 08/05/25 19:30 Ondansetron HCl (Ondansetron Inj 2 Mg/Ml Inj 2 Ml) 4 mg IVP Q6H PRN; Protocol PRN Reason: NAUSEA OR VOMITING Stop: 08/05/25 23:16 Last Admin: 07/08/25 08:25 Dose: 4 mg Oxycodone/Acetaminophen (Oxycodone/Apap 5/325 Tablet) 1 tab PO Q6H PRN PRN Reason: PAIN SCALE 4-6 (Moderate Stop: 07/11/25 23:16 Pantoprazole Sodium (Pantoprazole 40 Mg Tablet) 40 mg PO QDAY THANH Stop: 08/06/25 08:59 Last Admin: 07/08/25 08:22 Dose: 40 mg Sennosides (Senna Tablet) 1 tab PO QDAY PRN; Protocol PRN Reason: constipation Stop: 08/05/25 23:16 Valsartan (Valsartan 80 Mg Tablet) 80 mg PO DAILY THANH Stop: 08/07/25 08:59 Last Admin: 07/08/25 08:21 Dose: 80 mg Assessment & Plan Plan A 55-year-old female with a history of hypertension, Max?s thyroiditis, asthma, GERD, obstructive sleep apnea (on CPAP), and irregular heartbeat (under cardiology care) presented to the ED after experiencing episode of word finding difficulty, dizziness, and dysphagia with mild chest pain and SOB. Pt was admitted for CVA work up. She is an established patient of Dr Pop, who is being consulted for cardiac evaluation of her presenting symptoms. Problems: # CVA workup # Transient ischemic attack # Hypertensive urgency # Max's thyroiditis #Obstructive sleep apnea # Asthma # Acute liver injury Recommendations: -CT head and MRI were negative for acute hemorrhage, mass effect, or midline shift, or acute infarct. Pt had marked elevation of BP 178/129 in ED, her presenting stroke-like symptoms are probably attributable to acute hypertensive urgency. As her blood pressure was normalized through her hospital stay, so did her symptoms resolve gradually. Pt was prescribed valsartan 80mg and recommend close montoring of her BP. -Negative bubble study for a PFO or ASD. Consider LISS if high clinical index of suspicion to rule out any LA or SHARI thrombus. TTE 07/07/2025 Indication: CVA Workup, bubble study Normal LV size and function with an EF of 60-65%. Normal RV size and function. Trace to mild TR and trace MR. Trivial to small poterolateral pericardial effusion. No evidence of any cardiac tamponade. -Recommend outpatient cardiology follow-up with LISS and carotid duplex ultrasound as outpatient within 1-2wk of discharge. -Keep K+ >4 and Mg >2 at all times Thank you for cardiology consultation. We appreciate the opportunity to participate in this patient's care. Will continue to follow-up on this patient This case was discussed with my attending physician, Dr. Pop, cushion builder. Corby Herbert, PGY I Attending Provider Attestation/Addendum I have personally seen and examined the patient separately on the above date of service and discussed the plan of care with the resident. I reviewed the resident Dr. Tavarez consultation progress note and agree with the resident findings and plan in the note above and have also edited the documentation to reflect my findings and plan. Patient well-known to me from the clinic and that she has presented to the office for further evaluation of palpitations and occasional chest pain. Patient had workup started and the Holter monitor did not show only sinus tachycardia without any evidence of any clear arrhythmias. Patient was having further workup including an echo as well as a stress test which was scheduled already for July 15, 2025. In the meantime patient developed some neurological symptoms including word for difficulty, dizziness as well as dysphagia along with some chest pain and shortness of breath. Patient was admitted for further workup of CVA and CT head along with MRI brain were negative for any acute hemorrhage or mass effect or midline shift or acute infarct. Echo completed on 07/07/2025 showed negative bubble study without any evidence of a PFO or ASD. Otherwise normal LV function normal function estimated EF of 60 to 65%. Trace to small posterolateral pericardial effusion and there was no evidence of any cardiac tamponade. Patient recommended to follow-up in the office to complete further cardiac testing. Patient is chest pain-free at the present point of time and is eager to go home. Patient recommended to follow-up with the clinic in 7 days. Management of rest of the medical conditions as per primary team and other consultants. Thank you for the consult and allowing me to participate in the care of the patient. Cardiology will continue to follow. Rafi Pop M.D. Interventional Cardiology
== END 2025-07-08 13:00 | disposition home or self-care (01) | DRG 69 ==
LOC: SERX 20:46 → SERHOLD 23:34 → S2NX 07-07 01:13 → S3NX 07-07 16:57
PROVIDERS: Admitting Provider Student in an Organized Health Care Education/Training Program; Emergency Provider Emergency Medicine; Visit Provider Student in an Organized Health Care Education/Training Program
DX: G45.9 Transient cerebral ischemic attack, unspecified (principal); S36.119A Unspecified injury of liver, initial encounter; I10 Essential (primary) hypertension; E06.3 Autoimmune thyroiditis; R13.10 Dysphagia, unspecified; K21.9 Gastro-esophageal reflux disease without esophagitis; G47.33 Obstructive sleep apnea (adult) (pediatric); J45.909 Unspecified asthma, uncomplicated; I16.0 Hypertensive urgency; I49.9 Cardiac arrhythmia, unspecified; E83.42 Hypomagnesemia; F41.9 Anxiety disorder, unspecified; F32.A Depression, unspecified; R53.82 Chronic fatigue, unspecified; Z79.82 Long term (current) use of aspirin; Z88.5 Allergy status to narcotic agent
CPT/HCPCS: 36415; 70450; 70553; 71045; 80053; 80061; 80307; 80320; 81001; 83036; 83735; 83880; 84100; 84439; 84443; 84481; 84484; 85025; 85610; 85730; 92610; 93005; 93225; 93306; 94660; 96361; 96365; 96366; 96375; 97161; 99284; J1650; J1885; J2405; J3475; J7030; A9270; G0480

== ENCOUNTER → 2025-10-13 | Outpatient (CLI) | payer BC, SELFPAY ==
[2025-10-13 16:27] LABS: Coccid Serology, CF (UCD)* See Sep Rpt
[2025-10-13 16:35] LABS: HCG Qualitative,Urine Negative
--- NOTE | 2025-10-13 16:45 | XR_ITS ---
Examination: CT chest, without intravenous contrast. Sagittal and coronal 2-D reconstructions. Exam date and time: October 13, 2025, 1701 hours, comparison December 18, 2023 INDICATIONS: Shortness of breath, chronic, 2 months, dyspnea on exertion, clinical diagnosis pulmonary fibrosis CTDI:vol (mGy) 11.9 DLP: (mGycm) 404 Technique: Multiple 3.0 mm axial sections of the chest to been obtained. Bone and lung density settings are obtained. Sagittal and coronal 2-D reconstructions have been obtained. Low dose protocols were performed. One or more of the following dose reduction techniques were used; automated exposure control, adjustment of the mA and/or KV according to patient size, use of iterative reconstruction technique. Findings: No thoracic aortic aneurysmal dilatation Pulmonary artery segments are not enlarged No mediastinal lymphadenopathy No pneumonia, pulmonary edema, pleural disease or pulmonary nodules No pulmonary fibrosis No visualized liver or splenic lesion No gallstones No pancreatic or adrenal mass Small left parapelvic cysts Moderate osteopenia IMPRESSION: No mediastinal lymphadenopathy No pneumonia, pulmonary edema, pleural disease or pulmonary nodules Negative for pulmonary fibrosis
[2025-10-13 17:46] LABS: Troponin I < 0.002 ng/mL (0.0-0.045)
[2025-10-13 18:03] LABS: D-Dimer < 250 ng/mL (<600)
== END | disposition home or self-care (01) ==
PROVIDERS: PCP Specialist; Referring Provider Internal Medicine; Visit Provider Internal Medicine
DX: R06.00 Dyspnea, unspecified (principal); J45.51 Severe persistent asthma with (acute) exacerbation; Z32.00 Encounter for pregnancy test, result unknown
CPT/HCPCS: 36415; 71250; 81025; 84484; 85379; 86171

== ENCOUNTER 2025-11-14 21:01 | Emergency (ER) | payer BC, SELFPAY ==
[2025-11-14 21:56] VITALS: BP 146/94; PULSE 89; RESP 18; TEMP 36.7; O2SAT 98
--- NOTE | 2025-11-14 22:20 | PD.EDWOUND ---
ED Wound/Laceration-RME/HPI General Chief Complaint: Wound/Laceration Stated Complaint: LAC TO RIGHT HAND Time Seen by Provider: 11/14/25 21:10 Arrival date/time: 11/14/25 21:01 55-year-old female patient came in for evaluation regarding laceration to the right hand between the thumb and the second finger. Patient was cutting a pineapple and accidentally cut her hand with a sharp knife. Patient sustained 1 cm gaping laceration. Patient is able to bend and extend the thumb and the fingers without any limitation. No active bleeding noted at the time of my examination. Related Data Home Medications ?Medication ?Instructions ?Recorded ?Confirmed levothyroxine 75 mcg tablet 75 mcg PO QDAY 12/27/20 07/07/25 montelukast 10 mg tablet 10 mg PO QDAY 12/27/20 07/07/25 (Singulair) budesonide 0.5 mg/2 mL suspension 0.5 mg inhalation DAILY 07/07/25 07/07/25 for nebulization bupropion HCl 150 mg 24 hr tablet, 150 mg PO DAILY 07/07/25 07/07/25 extended release ergocalciferol (vitamin D2) 1,250 1,250 mcg PO .once a week 07/07/25 07/07/25 mcg (50,000 unit) capsule famotidine 40 mg tablet 40 mg PO DAILY 07/07/25 07/07/25 ipratropium 0.5 mg-albuterol 3 mg 2.5 ml inhalation DAILY 07/07/25 07/07/25 (2.5 mg base)/3 mL nebulization soln ketoconazole 2 % topical cream 1 applic topical DAILY 07/07/25 07/07/25 levocetirizine 5 mg tablet 5 mg PO DAILY 07/07/25 07/07/25 pantoprazole 20 mg tablet,delayed 20 mg PO DAILY 07/07/25 07/07/25 release Held on 07/08/25. Instructions: Resume on 07/22/25. please follow up with your primary care before resuming valsartan 80 mg tablet 80 mg PO DAILY 07/07/25 07/07/25 Allergies Allergy/AdvReac Type Severity Reaction Status Date / Time hydrocodone Allergy Severe HALLUCINATI Verified 11/14/25 21:04 ONS Review of Systems Review of Systems Narrative Review of Systems: Review of system reviewed and within normal limits except mentioned in HPI ED Exam Narrative Physical exam: VITAL SIGNS: Reviewed. GENERAL APPEARANCE: Alert and interactive, follows commands, no acute distress, HEAD AND FACE: Non-traumatic. ENT: PERRL, pink conjunctivitis, eyelid no trauma, Mucous membrane moist. GENITAL: Deferred. NEUROLOGICAL: Gross motor function intact sensory function intact, Appropriate for age. MUSCULOSKELETAL: low back nontender, full range of motion. EXTREMITIES: +1 cm laceration, right thumb palmar aspect, full range of motion. SKIN: Color pink, dry, no rash, no lacerations, no abrasions, no contusions. LYMPHATICS: Deferred. Course Quality Measures none Orders Category Date Time Status Ibuprofen Tab [Motrin Tab] Med 11/14/25 22:19 Once 600 mg PO X1 ONE TET,DIP/PERT AC (Adult)-Tdap [Boostrix Adult (Tdap) Med 11/14/25 22:19 Once Vacc] 0.5 ml IMI .ONCE ONE Vital Signs Vital signs: Vital Signs Temperature 98.1 F 11/14/25 21:56 Pulse Rate 89 11/14/25 21:56 Respiratory Rate 18 11/14/25 21:56 Blood Pressure 146/94 H 11/14/25 21:56 Pulse Oximetry (%) 98 11/14/25 21:56 Oxygen Delivery Method Room Air 11/14/25 21:56 PROCEDURES: Laceration Laceration 1: Site: other (Right hand) Size (cm): 1 Description: linear Depth: simple, single layer Local Anesthetic: lidocaine 1% Amount of anesthesia used (mL): 2 Pre-repair: wound explored Skin layer closed with: nylon Suture size (cm): 5-0 Number of sutures: 3 Technique: simple, interrupted Wound / Laceration MDM Narrative MDM Narrative:: 55-year-old female patient came in for evaluation regarding laceration to the right hand between the thumb and the second finger. Patient was cutting a pineapple and accidentally cut her hand with a sharp knife. Patient sustained 1 cm gaping laceration. Patient is able to bend and extend the thumb and the fingers without any limitation. No active bleeding noted at the time of my examination. Imaging or workup as dictated this time. Patient received Boostrix, and Motrin. Repair and suturing was done by me see procedure notes. Stable for charged home Patient data External records reviewed:: None Clinical information provided by:: patient and family Social determinants that could affect healthcare access:: none Patient has the following chronic illnesses:: Hypertension How is presenting disease/condition affected by chronic disease/condition?: no chronic disease Evaluation data The following diagnostics were reviewed and interpreted by me:: other (specify) (None) Lab and/or radiology exams considered but not ordered:: None none Interpretation Summary: None Medications / Prescriptions Medications or Prescriptions considered but not ordered:: None none Medication administrations:: None Consultations Consultation(s) initiated? (list below): No Diagnosis Wound Differential Diagnosis: laceration, avulsion of skin and other (Hand laceration) Most likely diagnosis given after review of the tests above:: HAnd laceration Admission Indicated Admission indicated?: not indicated Admission Request Was there a request for admission?: No Disposition Plan Disposition Plan: Discharge Discharge Attestation Discharge Attestation: The patient and all family members were given an opportunity to ask questions and understood the discharge instructions. Discharge instructions specifically effects, indications for sooner follow up or return to the emergency department, and the expected course of current diagnosis. Patient condition: Stable Discharge Plan Plan Patient Disposition: HOME (Self Care) Discharge Disposition comment: Stable Prescriptions/Referrals Prescriptions/Med Rec: No Action levothyroxine 75 mcg Tablet 75 mcg PO QDAY montelukast [Singulair] 10 mg Tablet 10 mg PO QDAY ipratropium-albuterol 0.5 mg-3 mg(2.5 mg base)/3 mL solution for nebulization 2.5 ml INHALATION DAILY Patient Comments: USE 1 VIAL VIAL NEBULIZER EVERY 4-6 HOURS NEEDED famotidine 40 mg tablet 40 mg PO DAILY Patient Comments: TAKE 1 TABLET BY MOUTH EVERY DAY pantoprazole 20 mg tablet,delayed release (DR/EC) 20 mg PO DAILY Patient Comments: TAKE 1 TABLET BY MOUTH EVERY DAY ketoconazole 2 % cream 1 applic TOPICAL DAILY Patient Comments: APPLY 1 APPLICATION TOPICALLY ONCE A DAY bupropion HCl 150 mg tablet extended release 24 hr 150 mg PO DAILY levocetirizine 5 mg tablet 5 mg PO DAILY Patient Comments: TAKE 1 TABLET BY MOUTH IN THE EVENING ONCE A DAY NEEDED FOR ALLERGIES FOR 90 DAYS ergocalciferol (vitamin D2) 1,250 mcg (50,000 unit) capsule 1,250 mcg PO .once a week Patient Comments: TAKE 1 CAPSULE BY MOUTH WEEKLY valsartan 80 mg tablet 80 mg PO DAILY Patient Comments: TAKE 1 TABLET BY MOUTH EVERY DAY budesonide 0.5 mg/2 mL suspension for nebulization 0.5 mg INHALATION DAILY Patient Comments: USE 1 VIAL VIA NEBULIZER TWICE A DAY Problem List Clinical Impression: Laceration of hand Patient/Caregiver Discharge Instructions Discharge Activity: activity as tolerated Education Materials: ED Laceration: All Closures Additional Instructions: Thank you for the opportunity for serving you today. You are stable for discharged . You are advised to: Follow-up with your PCP in 1 to 2 days Return to ED for worsening of symptoms Increase oral fluids Do not get your laceration wet for the next 7 days For removal of sutures in 7 to 10 days You may take [id number] Tylenol or Motrin for as needed for pain Print Language: Comoran Stand Alone Forms: Mariajose Award Info., Patient Portal Info Letter PA/MANUELITO Supervising Physician PA/MANUELITO Supervising Physician: MD Quin
[2025-11-14] MEDS: IBUPROFEN TAB 600 MG TABLET PO (22:35)
== END 2025-11-14 22:41 | disposition home or self-care (01) ==
LOC: SERX 22:45
PROVIDERS: Emergency Provider Nurse Practitioner Family
DX: S61.411A Laceration without foreign body of right hand, initial encounter (principal); W26.0XXA Contact with knife, initial encounter; Y93.G1 Activity, food preparation and clean up
CPT/HCPCS: 12002; 99281; A9270

== ENCOUNTER → 2025-11-18 | Outpatient (CLI) | payer BC, SELFPAY ==
[2025-11-18 15:47] LABS: Basophils # (Auto) 0.1 Thou/mm3 (0.0-0.2); Basophils % (Auto) 1 % (0-2.5); Eosinophils # (Auto) 0.1 Thou/mm3 (0.0-0.5); Eosinophils % (Auto) 1 % (0-10); Hematocrit 42.8 % (36.0-46.0); Hemoglobin 13.5 g/dL (12.0-16.0); Immature Granulocytes Auto 0.03 Thou/mm3 (0.00-0.00); Lymphocytes # (Auto) 2.3 Thou/mm3 (1.0-4.8); Lymphocytes % (Auto) 26 % (10-50); Mean Corpuscular HGB Conc 31.5 g/dl (31.0-37.0); Mean Corpuscular Hemoglobin 26.9 pg (25.0-35.0); Mean Corpuscular Volume 85 fL (80-100); Monocytes # (Auto) 1.0 Thou/mm3 (0.0-0.8); Monocytes % (Auto) 12 % (0-12); Neutrophils # (Auto) 5.3 Thou/mm3 (1.8-7.7); Neutrophils % (Auto) 60 % (37-80); Nucleated Red Blood Cell # 0.00 Thou/mm3 (0.00-0.00); Nucleated Red Blood Cell % 0 /100 WBC (0); Platelet Count 282 Thou/mm3 (140-440); RDW Standard Deviation 43.9 fL (36.4-46.3); Red Blood Count 5.01 Miln/mm3 (4.00-5.20); White Blood Count 8.8 Thou/mm3 (3.6-11.0)
[2025-11-18 15:59] LABS: Sed Rate (ESR) 28 mm/hr (0-30)
[2025-11-18 16:08] LABS: Alanine Aminotransferase 53 U/L (10-49); Albumin, Serum 4.4 gm/dL (3.5-5.0); Albumin/Globulin Ratio 1.8 (1.2-2.2); Alkaline Phosphatase 136 U/L (46-116); Anion Gap 8 (7-16); Aspartate Amino Transferase 38 U/L (0-34); BUN/Creatinine Ratio 23 Ratio (12-20); Bilirubin,Total 0.4 mg/dL (0.3-1.2); Blood Urea Nitrogen 18 mg/dL (9-23); C-Reactive Protein < 0.5 mg/dL (0.0-0.9); Calcium 10.1 mg/dL (8.3-10.6); Calcium (Corrected) 10.1 mg/dL (8.5-10.1); Carbon Dioxide 30.5 mMol/L (20.0-31.0); Chloride 103 mMol/L (98-107); Creatinine (Component) 0.8 mg/dL (0.6-1.3); Globulin 2.4 gm/dL (2.3-3.5); Glucose 95 mg/dL (74-106); Osmolality,Calculated 283 (275-295); Potassium 4.3 mMol/L (3.4-5.1); Sodium 141 mMol/L (136-145); Total Protein 6.8 gm/dL (5.7-8.2); eGFR > 60 See Note
== END | disposition home or self-care (01) ==
LOC: CDIM 15:04 → COPL 15:18
PROVIDERS: PCP Specialist; Referring Provider Specialist; Visit Provider Specialist
DX: K46.9 Unspecified abdominal hernia without obstruction or gangrene (principal)
CPT/HCPCS: 36415; 80053; 85025; 85652; 86140